=== PATIENT | female | born 1960 | race Caucasian/White ===

== ENCOUNTER → 2018-08-15 08:16 | Outpatient (CLI) | payer OTHER, SELFPAY ==
--- NOTE | 2018-08-15 08:19 | BI_ITS ---
MAMMOGRAPHY - BILATERAL SCREENING REASON FOR EXAM: Female, 58 years old. Routine annual screening examination. PERTINENT HISTORY: NO FAM HX - NO PREV SURG'S TECHNIQUE: Digital bilateral breast jt (3D mammographic acquisition) in the CC and MLO projections. 2-D mediolateral oblique (MLO) and craniocaudad (CC) views of both breasts were obtained. CAD: Full Field Digital Mammography with Computer Added Detection was performed. COMPARISON: None. FINDINGS: Breast Composition: There are scattered areas of fibroglandular density. There are no dominant masses or suspicious calcifications. No other significant abnormalities are identified. BI/SCREENING MAMM (CAD), BILAT IMPRESSION: Stable bilateral screening mammogram. Yearly follow-up mammogram recommended. (A) ASSESSMENT CATEGORY: BIRADS Category 2: Benign. A letter regarding these results will be sent to the patient by the facility within 30 days. Approximately 10% of breast cancers are not detected by mammography. A normal mammogram should not delay biopsy of a clinically suspicious abnormality. [id number] Electronically Signed: Roseann Dumont MD at 15:57 EDT Tel , Service support ,
== END ==
DX: Z12.31 Encounter for screening mammogram for malignant neoplasm of breast (principal)
CPT/HCPCS: 77063; 77067

== ENCOUNTER → 2019-12-31 11:02 | Outpatient (CLI) | payer OTHER, MEDICAID, SELFPAY ==
[2019-12-31 10:58] VITALS: BMI 32.3
--- NOTE | 2019-12-31 11:03 | RAD_ITS ---
STUDY: X-RAY - LEFT KNEE REASON FOR EXAM: Knee keeps popping. TECHNIQUE: 4 view(s) of the knee. COMPARISON: Radiographs 02/28/2017. FINDINGS: Normal visualized distal femur. Normal visualized proximal tibia and fibula. Normal proximal tibiofibular articulation. Normal medial femorotibial compartment. Normal lateral femorotibial compartment. Normal patellofemoral articulation. The soft tissue structures are unremarkable. RAD/Knee 4 or More Views IMPRESSION: Normal x-ray examination of the left knee. Electronically Signed: Storm Montoya MD at 15:01 EST Tel , Service support ,
== END ==
PROVIDERS: Referring Provider Orthopaedic Surgery; Visit Provider Orthopaedic Surgery
DX: M25.562 Pain in left knee (principal)
CPT/HCPCS: 73564

== ENCOUNTER → 2020-09-10 08:10 | Outpatient (CLI) | payer OTHER, MEDICAID, SELFPAY ==
[2020-09-10 09:22] LABS: Absolute Lymphocyte Count 1.81 X10^3/uL (0.83-4.51); Absolute Neutrophil Count 4.8 X10^3/uL (2.0-7.7); Basophil# 0.03 X10^3/uL; Basophil% 0.4 % (0-1); Eosinophil# 0.13 X10^3/uL; Eosinophils% 1.8 % (0-5); Hemoglobin 11.4 g/dL (12.0-15.0); Lymphocyte # 1.81 X10^3/ul (4.0); Lymphocyte % 25.1 % (19-41); Mean Corpuscular Hgb 29.2 pg (27.0-32.0); Mean Corpuscular Volume 97.2 fL (81-99); Mean Platelet Vol. 8.4 fl (6.2-12.0); Monocyte# 0.38 X10^3/uL; Monocyte% 5.3 % (0-10); NRBC Flagged by Analyzer 0 % (0-5); Neutrophil # 4.83 X10^3/uL (2.7-7.7); Platelet Count 259 K/mm3 (150-450); RBC Distribution Width CV 15.7 % (11.6-14.6); RBC Distribution Width SD 55.9 fl (35.1-43.9); Red Blood Count 3.91 M/mm3 (4.2-5.4); White Blood Count 7.2 K/mm3 (4.4-11.0)
[2020-09-10 10:01] LABS: ALB/GLOB Ratio 0.9 RATIO (0.9-2.4); AST(SGOT) 12 U/L (15-37); Alanine Aminotransfer ALT/SGPT 23 U/L (13-56); Albumin, Serum 3.2 g/dL (3.2-5.0); Alkaline Phosphatase 104 U/L (45-117); Anion Gap 9 (5-15); BUN 15 mg/dL (7-18); BUN/Creat Ratio 16.6 RATIO (10-20); Calcium,Total 8.7 mg/dL (8.5-10.1); Chloride 101 mmol/L (98-107); Cholesterol 206 mg/dL (200); EST Glomerular Filtration Rate 67 mL/min (>60); Est Glom Filt Rate - Afr Amer 81 mL/min (>60); Globulin 3.7 g/dL (2.2-4.2); Glucose 106 mg/dL (74-106); High Density Lipoprotein 49 mg/dL; Potassium 4.3 mmol/L (3.5-5.1); Protein, Total 6.9 g/dL (6.4-8.2); Sodium Level 137 mmol/L (136-145); T4 Free Direct 0.91 ng/dL (0.76-1.46); Thyroid Stim Hormone (TSH) 4.22 uIU/mL (0.358-3.74); Triglycerides 251 mg/dL; Uric Acid 5.4 mg/dL (2.6-6.0); Very Low Density Lipoprotein 50 mg/dL (5-40)
[2020-09-10 10:42] LABS: Vitamin D,25 Hydroxy 88.1 ng/mL
== END ==
PROVIDERS: Nurse Practitioner Family
DX: I10 Essential (primary) hypertension (principal); E78.2 Mixed hyperlipidemia; E03.9 Hypothyroidism, unspecified; E55.9 Vitamin D deficiency, unspecified; M10.9 Gout, unspecified
CPT/HCPCS: 36415; 80053; 80061; 82306; 84439; 84443; 84550; 85025

== ENCOUNTER → 2021-02-21 08:51 | Outpatient (CLI) | payer OTHER, MEDICAID, SELFPAY ==
[2021-02-21 09:33] LABS: Absolute Lymphocyte Count 1.72 X10^3/uL (0.83-4.51); Absolute Neutrophil Count 5.2 X10^3/uL (2.0-7.7); Basophil# 0.05 X10^3/uL; Basophil% 0.7 % (0-1); Eosinophil# 0.12 X10^3/uL; Eosinophils% 1.6 % (0-5); Hematocrit 41.6 % (37-47); Hemoglobin 12.2 g/dL (12.0-15.0); Lymphocyte # 1.72 X10^3/ul (4.0); Lymphocyte % 22.6 % (19-41); Mean Corp Hgb Conc 29.3 g/dL (32-36); Mean Corpuscular Volume 95.4 fL (81-99); Mean Platelet Vol. 8.6 fl (6.2-12.0); Monocyte# 0.48 X10^3/uL; Monocyte% 6.3 % (0-10); NRBC Flagged by Analyzer 0 % (0-5); Neutrophil # 5.21 X10^3/uL (2.7-7.7); Neutrophil % 68.4 % (47-70); Platelet Count 293 K/mm3 (150-450); RBC Distribution Width CV 15.6 % (11.6-14.6); Red Blood Count 4.36 M/mm3 (4.2-5.4); White Blood Count 7.6 K/mm3 (4.4-11.0)
[2021-02-21 10:05] LABS: Vitamin B12 309 pg/mL (211-911)
[2021-02-21 10:30] LABS: ALB/GLOB Ratio 0.9 RATIO (0.9-2.4); AST(SGOT) 11 U/L (15-37); Alanine Aminotransfer ALT/SGPT 22 U/L (13-56); Albumin, Serum 3.6 g/dL (3.2-5.0); Alkaline Phosphatase 92 U/L (45-117); Anion Gap 7 (5-15); BUN 14 mg/dL (7-18); BUN/Creat Ratio 16.3 RATIO (10-20); Calcium,Total 9.1 mg/dL (8.5-10.1); Chloride 103 mmol/L (98-107); Creatinine, Serum 0.86 mg/dL (0.55-1.02); EST Glomerular Filtration Rate 71 mL/min (>60); Est Glom Filt Rate - Afr Amer 86 mL/min (>60); Globulin 3.8 g/dL (2.2-4.2); Glucose 105 mg/dL (74-106); Iron 62 ug/dL (50-170); Iron Binding Capacity,Total 338 ug/dL (250-450); PERCENT IRON SATURATION 18.3 % (15.0-55.0); Potassium 3.9 mmol/L (3.5-5.1); Protein, Total 7.4 g/dL (6.4-8.2); Sodium Level 136 mmol/L (136-145); Thyroid Stim Hormone (TSH) 4.14 uIU/mL (0.358-3.74)
== END ==
DX: D64.9 Anemia, unspecified (principal)
CPT/HCPCS: 36415; 80053; 82607; 82746; 83540; 83550; 84443; 85025

== ENCOUNTER → 2021-02-22 | Outpatient (CLI) | payer OTHER, MEDICAID, SELFPAY ==
[2021-02-22 11:53] LABS: Bacteria 0 SEEN /hpf (None Seen); Mucous, Urine 0 SEEN /hpf (<or=2+); Red Blood Cells-Urine 0 SEEN /hpf (0-5); Squamous Epithelial Cells - UA 0 SEEN /hpf (5-10); White Blood Cells 0 SEEN /hpf (0-5)
[2021-02-22 11:58] LABS: Color, Urine Yellow (Yellow); Glucose, Dipstick Normal (Normal); Ketone-Dipstick Negative (Negative); Leukocyte Esterase-Dipstick Negative /ul (Negative); Nitrite-Dipstick Negative (Negative); Occult Blood-Urine 10 /ul (Negative); Protein-Dipstick 15 mg/dl (Negative); Urine Bilirubin Dipstick Negative (Negative); Urine Clarity Cloudy (Clear); Urine Urobilinogen Normal (Normal)
[2021-02-22 12:03] LABS: Amorphous Sediment 3+
== END | disposition home or self-care (01) ==
DX: R31.29 Other microscopic hematuria (principal); E78.2 Mixed hyperlipidemia
CPT/HCPCS: 81001; 82274

== ENCOUNTER → 2021-04-28 11:29 | Outpatient (CLI) | payer MEDICAID, SELFPAY ==
[2021-04-28 13:00] LABS: Thyroid Stim Hormone (TSH) 3.84 uIU/mL (0.358-3.74)
== END ==
PROVIDERS: Visit Provider Nurse Practitioner Adult Health
DX: E03.9 Hypothyroidism, unspecified (principal)
CPT/HCPCS: 36415; 84443

== ENCOUNTER 2021-06-08 07:16 | Day surgery (SDC) | payer MEDICAID, SELFPAY ==
[2021-05-11 09:31] VITALS: BMI 35.9
[2021-06-08] VITALS (12 sets, daily range): BP systolic 89–138; BP diastolic 55–75; PULSE 56–66; RESP 12–18; TEMP 36.2–36.4; O2SAT 93–100; BMI 51.6
[2021-06-08] MEDS: Lactated Ringers 1,000 ML 100 ML IV (07:57)
--- NOTE | 2021-06-08 07:57 | PCM.HP.BLA ---
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 Required: No Is patient in pain?: No Allergies Iodinated Contrast Media [DYEE] Allergy (Verified 05/11/21 09:41) Rash Sulfa (Sulfonamide Antibiotics) Allergy (Verified 05/11/21 09:41) Rash sertraline HCl [From Zoloft] Adverse Reaction (Verified 05/11/21 09:41) Other Medications candesartan 16 mg PO DAILY 09/09/15 [History Confirmed 05/11/21] citalopram 20 mg PO DAILY 09/09/15 [History Confirmed 05/11/21] cholecalciferol (vitamin D3) 50 mcg (2,000 unit) capsule 2,000 unit PO ONCE 12/18/17 [History Confirmed 05/11/21] allopurinol 100 mg tablet 100 mg PO DAILY 12/31/19 [History Confirmed 05/11/21] levothyroxine 50 mcg tablet 100 mcg PO DAILY tab 05/11/21 [History Confirmed 05/11/21] meloxicam 7.5 mg tablet 7.5 mg PO BID PRN tab 05/11/21 [History Confirmed 05/11/21] PFSH Medical History Difficulty balancing Fatigue Hemorrhoids HTN (hypertension), benign Knee pain Limb weakness Thyroid disease Family History (Updated 05/11/21 @ 09:42 by Elisa Malone) Brother Diabetes Mother Hypertension Kidney disease Daughter Thyroid disorder Father Cancer eye cancer Social History Smoking Status: Current some day smoker alcohol intake: current alcohol intake frequency: holidays/special occasions only Alcohol type: beer and wine HPI HPI HPI: NOEL BISHOP, is a 60 F who presents to the office today for colonoscopy due to positive fecal occult blood test. Patient last colonoscopy was in [address] Worley only showed some diverticulosis and small internal hemorrhoids recommend follow-up colonoscopy in 10 years. Patient has been having some lower left groin pain which she states did get better with bladder diet patient states now she has the suprapubic stinging that comes and goes. Patient cannot relate it to anything specific. Points to about her pubic bone. During this work-up patient did get the fecal occult test which was positive. Patient denies any family history of colon cancer. Patient states she has bowel movements daily denies any blood. ROS General General: Yes fatigue; No weight change, appetite, colon cancer, breast cancer or weakness HEENT HEENT: No difficulty swallowing, eye injury, eye surgery, swollen glands or hoarseness Endo Endocrine: Yes thyroid disease; No diabetes mellitus, thyroid cancer, Hair loss, heat intolerance or cold intolerance Skin Skin: No rash or changing moles Breast Breast: No left breast lump, right breast lump, nipple discharge, breast pain, abnormal mammogram, abnormal US or breast enlargement Musc Musculoskeletal: Yes arthritis and gout; No back problems, rheumatoid arthritis or joint pain Cardio Cardiovascular: Yes high blood pressure; No murmur, pacemaker, heart disease, atrial fibrillation, heart attack, heart stent, palpitations, shortness of breat with exertion or chest pain Psych Psychiatric: Yes depression and anxiety; No hearing voices Resp Respiratory: Yes shortness of breath, Yes sleep apnea, No cough, No COPD, No asthma, No emphysema and No wheezing Gastro Gastrointestinal: No abdominal pain, No nausea or vomiting, Yes diarrhea, No constipation, No blood in stool, No acid reflux, Yes hemorrhoids, No ulcers, No gallbladder problem and No black,tarry stools Jorge Hematologic: No blood thinners, No blood disorders, No bleeding, No anemia and No blood clots Neuro Neurologic: No system reviewed and no additional complaints, except as documented, No as per HPI, No abnormal gait, No abnormal hearing, No abnormal movements, No abnormal speech, No behavioral changes, No burning sensations, No confusion, No convulsions, No disequilibrium, No dizziness, No localized weakness, No frequent falls, No headache(s), No lack of coordination, No loss of vision, No memory loss, No numbness, No other visual disturbances, No radicular pain, No restless legs, No sensory deficit, No syncope, No tingling, No tremor(s), No weakness and No other Exam Const General: cooperative, healthy appearing, comfortable and no acute distress Neck Neck: normal visual inspection Resp Effort & Inspection: normal respiratory effort Cardio Rate: regular rate GI Inspection: non-distended Palpation: soft, no guarding and nontender Skin General: no rashes or lesions noted Neuro General: patient oriented x3 Psych Affect: normal affect COVID (Procedure Consent) Procedure Criteria Procedure Criteria: Yes Elective The surgeon/proceduralist and patient have discussed in detail the risk of exposure to and/or potential harm posed by the COVID-19 virus with having a surgery/procedure at this time versus the risk of delaying the surgery/procedure. It is not possible to know either the risk of delaying the surgery or procedure or chance of getting an infection with perfect accuracy, but a joint decision was made between the patient and the surgeon/proceduralist to proceed at this time with the scheduled surgery/procedure as indicated on the consent form. Assessment and Plan Assessment and Plan (1) Fecal occult blood test positive: Status: Acute Plan - Dr. Amee Post MD: I have discussed the above with the patient. I have offered the patient colonoscopy for evaluation. I have explained the risks/benefits of the procedure and described the procedure. I have discussed the risks with the patient, including but not limited to: infection, bleeding, perforation of the GI tract requiring emergency surgery, inability to complete the procedure, injury to any internal organs, complications of anesthesia, etc. - the patient understands and agrees to proceed. I have answered all the patient's questions to the patient's satisfaction and the patient has no further questions. The patient has been given instructions for the colon cleansing preparation. 1 day clears MiraLAX Dulcolax split prep. Amee Post M.D. Pager: [phone] [facility] [address] [place] [address], [address] [place] [address] Office: [phone] Plan Details Other Orders: Orders: Colonoscopy Today Coding Level of Care Code Off vis,new,level 3 Diagnoses Fecal occult blood test positive R19.5 05/12/21 1353<Electronically signed by Amee Post MD>Date Amee Post MD
--- NOTE | 2021-06-08 08:45 | COLBX_PTH ---
PATIENT: NOEL BISHOP LOC: EN U#:[id number] AGE/SX: 60/F ROOM: RE06/08/[address]: Dr. Amee Post MD : 1960 BED: DIS: 06/08/2021 SPEC #: [id number] RECD: 06/08/21 10:53 STATUS: VERENICE REQ #: [id number] CORIE: 06/08/21 08:[address]: Amee Post DEPT: SURGICAL PATHOLOGY RECD BY: Vicki Esteban ENTERED: 06/08/21 11:27 SP TYPE: COLON BX OTHR DR: Goldie Henley, MEDICAL IMAGING SPECIALIST-C [facility] Tissues: A - Ascending colon B - Rectum, NOS Procedures: Surgery Specimen Level IV HEADER OPERATION: Colonoscopy (MAC) PRE-OP DIAGNOSIS: Fecal occult blood test positive TISSUE SUBMITTED: A ? Ascending polyp biopsy, B ? Rectal polyp biopsy MICROSCOPIC DIAGNOSIS A. Ascending colon polyp, biopsy: Tubular adenoma. B. Rectal polyp, biopsy: Hyperplastic polyp. ALINA:cat 06/09/2021 MICROSCOPIC DESCRIPTION Slides are reviewed. GROSS DESCRIPTION A - Received in fixative is one container labeled with the patient's name and designated ascending polyp biopsy. The specimen consists of one irregular fragment of light newton soft tissue that measures 0.4 x 0.3 x 0.1 cm. The specimen is totally submitted in one cassette. B - Received in fixative is one container labeled with the patient's name and designated rectal polyp biopsy. The specimen consists of one irregular fragment of light newton soft tissue that measures 0.2 x 0.2 x 0.1 cm. The specimen is totally submitted in one cassette. / ALINA:cat 06/08/21 TC:1 [facility]: [id number] x2
--- NOTE | 2021-06-08 09:24 | OP.CCLET_ITS ---
06/08/2021 Genia Bedoya [facility] Re : Colonoscopy procedure for Tamara Tierney [facility] This procedure was performed on Tuesday, June 08, 2021. My impressions and recommendations are as follows: Impressions : - Two less than 5 mm polyps in the rectum and in the ascending colon, removed with a cold biopsy forceps. Resected and retrieved. - Diverticulosis in the sigmoid colon. Recommendations : - Discharge patient to home. - High fiber diet. - Continue present medications. - Await pathology results. - Repeat colonoscopy in 5 years for surveillance based on pathology results. My findings are described in the full procedure note, which is enclosed. If I can be of further assistance, please feel free to contact me at Doctor phone number(s): , Work: . Sincerely, MD Amee Walker MD 06/08/2021 9:23:33 AM This report has been signed electronically.
--- NOTE | 2021-06-08 09:24 | OP.COLON_ITS ---
Patient Name: Tamara Benz Procedure Date: 06/08/2021 8:54 AM Date of : 1960 Age: 60 Procedure: Colonoscopy Indications: +FOBT Providers: Amee Post MD Referring MD: Amee Post MD Medicines: Monitored Anesthesia Care Patient Profile: This is a 60 year old female. Last Colonoscopy: 2011. Complications: No immediate complications. Procedure: Pre-Anesthesia Assessment: - Prior to the procedure, a History and Physical was performed, and patient medications and allergies were reviewed. The patient's tolerance of previous anesthesia was also reviewed. The risks and benefits of the procedure and the sedation options and risks were discussed with the patient. All questions were answered, and informed consent was obtained. Prior Anticoagulants: The patient has taken no previous anticoagulant or antiplatelet agents. ASA Grade Assessment: Per anesthesia. After reviewing the risks and benefits, the patient was deemed in satisfactory condition to undergo the procedure. After I obtained informed consent, the scope was passed under direct vision. Throughout the procedure, the patient's blood pressure, pulse, and oxygen saturations were monitored continuously. The colonoscope was introduced through the anus and advanced to the cecum, identified by the appendiceal orifice, ileocecal valve and palpation. The colonoscopy was performed without difficulty. The patient tolerated the procedure well. The quality of the bowel preparation was good. Scope In: 8:59:41 AM Scope Withdrawal Time 0 hours 12 minutes 31 seconds Scope Out: 9:17:46 AM Total Procedure Duration Time 0 hours 18 minutes 5 seconds Findings: The perianal and digital rectal examinations were normal. Two sessile polyps were found in the rectum and ascending colon. The polyps were less than 5 mm in size. These polyps were removed with a cold biopsy forceps. Resection and retrieval were complete. Multiple small-mouthed diverticula were found in the sigmoid colon. Impression: - Two less than 5 mm polyps in the rectum and in the ascending colon, removed with a cold biopsy forceps. Resected and retrieved. - Diverticulosis in the sigmoid colon. Recommendation: - Discharge patient to home. - High fiber diet. - Continue present medications. - Await pathology results. - Repeat colonoscopy in 5 years for surveillance based on pathology results. Procedure Code(s): --- Professional --- 26625, Colonoscopy, flexible; with biopsy, single or multiple Diagnosis Code(s): --- Professional --- K62.1, Rectal polyp D12.2, Benign neoplasm of ascending colon K57.30, Diverticulosis of large intestine without perforation or abscess without bleeding CPT copyright 2017 [employer]. All rights reserved. The codes documented in this report are preliminary and upon electrostatic powder coating technician review may be revised to meet current compliance requirements. MD Amee Walker MD 06/08/2021 9:23:33 AM This report has been signed electronically. Number of Addenda: 0 Note Initiated On: 06/08/2021 8:54 AM
== END 2021-06-08 10:35 | disposition home or self-care (01) ==
LOC: EN 07:17 → AC 07:17
PROVIDERS: Referring Provider Surgery; Visit Provider Surgery
PROC: 0DJD8ZZ Inspection of Lower Intestinal Tract, Via Natural or Artificial Opening Endoscopic (ICD-10-PCS; CPT 45378; principal; 2021-06-08 08:40)
DX: D12.2 Benign neoplasm of ascending colon (principal); K62.1 Rectal polyp; K57.30 Diverticulosis of large intestine without perforation or abscess without bleeding; I10 Essential (primary) hypertension; E07.9 Disorder of thyroid, unspecified; M19.90 Unspecified osteoarthritis, unspecified site; F17.210 Nicotine dependence, cigarettes, uncomplicated; Z20.822 Contact with and (suspected) exposure to COVID-19; Z79.899 Other long term (current) drug therapy
CPT/HCPCS: 45380; 87426; 88305; C9803; J7120; J2405

== ENCOUNTER 2021-11-16 12:15 | Outpatient (CLI) | payer MEDICAID, SELFPAY ==
[2021-11-16 12:44] LABS: Absolute Lymphocyte Count 1.13 X10^3/uL (0.83-4.51); Absolute Neutrophil Count 5.9 X10^3/uL (2.0-7.7); Basophil# 0.03 X10^3/uL; Basophil% 0.4 % (0-1); Eosinophil# 0.11 X10^3/uL; Eosinophils% 1.4 % (0-5); Hematocrit 42.6 % (37-47); Hemoglobin 13.5 g/dL (12.0-15.0); Lymphocyte # 1.13 X10^3/ul (0.83-4.51); Lymphocyte % 14.7 % (19-41); Mean Corp Hgb Conc 31.7 g/dL (32-36); Mean Corpuscular Hgb 29.8 pg (27.0-32.0); Mean Platelet Vol. 8.5 fl (6.2-12.0); Monocyte# 0.44 X10^3/uL; Monocyte% 5.7 % (0-10); NRBC Flagged by Analyzer 0 % (0-5); Neutrophil # 5.94 X10^3/uL (2.7-7.7); Neutrophil % 77.5 % (47-70); Platelet Count 300 K/mm3 (150-450); RBC Distribution Width CV 15.3 % (11.6-14.6); RBC Distribution Width SD 52.7 fl (35.1-43.9); Red Blood Count 4.53 M/mm3 (4.2-5.4); White Blood Count 7.7 K/mm3 (4.4-11.0)
[2021-11-16 13:16] LABS: Vitamin D,25 Hydroxy 99.1 ng/mL
[2021-11-16 13:24] LABS: ALB/GLOB Ratio 0.9 RATIO (0.9-2.4); AST(SGOT) 32 U/L (15-37); Alanine Aminotransfer ALT/SGPT 37 U/L (13-56); Albumin, Serum 3.6 g/dL (3.2-5.0); Alkaline Phosphatase 99 U/L (45-117); Anion Gap 9 (5-15); BUN 18 mg/dL (7-18); BUN/Creat Ratio 20.3 RATIO (10-20); Calcium,Total 9.2 mg/dL (8.5-10.1); Chloride 105 mmol/L (98-107); Creatinine, Serum 0.89 mg/dL (0.55-1.02); EST Glomerular Filtration Rate 68 mL/min (>60); Est Glom Filt Rate - Afr Amer 83 mL/min (>60); Ferritin 146 ng/mL (8-252); Globulin 4.1 g/dL (2.2-4.2); Glucose 109 mg/dL (74-106); Iron 46 ug/dL (50-170); Potassium 3.4 mmol/L (3.5-5.1); Protein, Total 7.7 g/dL (6.4-8.2); Sodium Level 137 mmol/L (136-145); T4 Free Direct 0.97 ng/dL (0.76-1.46)
== END 2021-11-16 23:59 | disposition short-term general hospital (02) ==
LOC: LAB 12:16
DX: E03.9 Hypothyroidism, unspecified (principal); I10 Essential (primary) hypertension; E55.9 Vitamin D deficiency, unspecified; E61.1 Iron deficiency
CPT/HCPCS: 36415; 80053; 82306; 82728; 83540; 84439; 84443; 85025

== ENCOUNTER 2022-01-27 09:20 | Outpatient (CLI) | payer MEDICAID, SELFPAY ==
[2022-01-27 11:02] LABS: Potassium 3.9 mmol/L (3.5-5.1)
[2022-01-27 11:03] LABS: Hemoglobin A1c 6.1 % (3.8-5.6)
== END 2022-01-27 23:59 | disposition home or self-care (01) ==
LOC: LAB 09:22
DX: E87.6 Hypokalemia (principal); R73.09 Other abnormal glucose
CPT/HCPCS: 36415; 83036; 84132

== ENCOUNTER 2022-01-31 08:52 | Outpatient (CLI) | payer MEDICAID, SELFPAY ==
[2022-01-31 10:27] LABS: Vitamin D,25 Hydroxy 92.6 ng/mL
[2022-01-31 10:35] LABS: Iron 51 ug/dL (50-170); Thyroid Stim Hormone (TSH) 0.89 uIU/mL (0.358-3.74)
== END 2022-01-31 23:59 | disposition home or self-care (01) ==
LOC: LAB 08:53
PROVIDERS: Referring Provider Nurse Practitioner Adult Health; Visit Provider Nurse Practitioner Adult Health
DX: E03.9 Hypothyroidism, unspecified (principal); E61.1 Iron deficiency; E55.9 Vitamin D deficiency, unspecified
CPT/HCPCS: 36415; 82306; 83540; 84443

== ENCOUNTER → 2022-04-14 | Outpatient (CLI) | payer MEDICAID, SELFPAY ==
--- NOTE | 2022-04-14 16:22 | SP.MBSS_ITS ---
Modified Barium Swallow - Patient Information Study Date: 04/14/22 Study Time: 13:00 Direct Billable Minutes: 85 Total Minutes procedure & reportin Diagnosis: Dysphagia, unspecified (R13.10) Referring Physician: Lul Albert Reason for Referral: Objectively assess swallow function, risk for aspiration, and determine recommendations for least restrictive diet textures and compensatory strategies to improve safety of swallow. Medical History: The patient is a 61-year-old female with PMH including thyroid disease, fatigue, and HTN (SEE EMR for full PMH). She reports coughing spells ~2X/month on liquids. Pt's daughter present for the study, and she reported that her mother occasionally coughs with solids, as well. She at times feels she has something caught in the base of her throat. She also reports frequent post nasal drip and coughing when in the AM when waking. Current Diet Ordered: Regular textures / Thin liquids Dentition: Natural Teeth, Partials - lower partials in place for study Mental Status: WNL Respiratory Status: Oxygenating on Room Air - Penetration-Aspiration Scale Penetration-Aspiration Scale: OBJECTIVE ASSESSMENT OF SWALLOW FUNCTION (QUANTITATIVE ? PER TRIAL): PENETRATION / ASPIRATION SCALE (JAMES): 1 = does not enter airway 2 = enters airway/above vocal folds/ejected 3 = enters airway/above vocal folds/not ejected 4 = enters airway/contacts vocal folds/ejected 5 = enters airway/contacts vocal folds/not ejected 6 = enters airway/below vocal folds/ejected 7 = enters airway/below vocal folds/not ejected despite effort 8 = enters airway/below vocal folds/no effort VIDEOFLOROSCOPIC SCALE SCORE (JAMES): Grade I = aspiration of material that has penetrated into the laryngeal vestibule, intact cough reflex Grade II = aspiration < 10 % of the bolus, intact cough reflex Grade III = aspiration of < 10 % of the bolus, reduced cough reflex or aspiration of > 10 % of the bolus, intact cough reflex Grade IV = aspiration of > 10 % of the bolus, reduced cough reflex - Penetration-Aspiration Scale Score Thin Liquid via teaspoon Result: 1= does not enter airway Thin Liquid via teaspoon Trial 2 Result: 1= does not enter airway Thin Liquid via small single sip from cup Result: 2= enter airway/above vocal folds/ejected Thin Liquid via sequential sips from cup Result: 2= enter airway/above vocal folds/ejected [place] Thick Liquid via small single sip from cup Result: 1= does not enter airway Honey Thick Liquid via small single sip from cup Result: 1= does not enter airway Pudding via teaspoon with esophageal screen Result: 1= does not enter airway 1/2 Cookie Result: 1= does not enter airway Thin Liquid via single sip from straw Result: 1= does not enter airway Thin Liquid via sequential sips from straw Result: 2= enter airway/above vocal folds/ejected Thin Liquid via small single sip from cup Trial 2 Result: 1= does not enter airway - Oral Phase Labial Seal: No Labial Escape Tongue Control During Bolus Hold: Posterior escape of greater than half of bolus Bolus Preparation/Mastication: Timely and efficient chewing and mashing Bolus Transport/Lingual Motion: Brisk tongue motion Oral Residue: Majority of bolus remaining - Piecemeal deglutition of cookie - effectively cleared with independent use of multiple swallows - Pharyngeal Phase Initiation of Pharyngeal Swallow: Bolus head in pyriforms - sequential sips Soft Palate Elevation: Trace column of contrast/air between soft palate and pharyngeal wall Laryngeal Elevation: Partial superior movement thyroid cart/partial apprx aryt- epig petiole Anterior Hyoid Excursion: Partial anterior movement Epiglottic Movement: Complete inversion Laryngeal Vestibule Closure at Height of Swallow: Incomplete; narrow column of air/contrast in laryngeal vestibule Pharyngeal Stripping Wave: Present - complete Pharyngoesophageal Segment Opening: Complete distension and complete duration; no obstruction of flow Tongue Base Retraction: Narrow column of contrast between tongue base & post. pharyngeal wall Pharyngeal Residue: Trace residue within or on pharyngeal structures - Esophageal Phase Esophageal Clearance: Esophageal retention w/ retrograde flow below pharyngoesophageal seg. - Treatment Strategies Effects of treatment strategies attemped:: Decreased bolus rate = effective. - Diagnosis/Impression Diagnosis: Mild oropharyngeal phase dysphagia (R13.12) Impression: The oral phase of the swallow is marked by decreased bolus control with premature posterior loss of bolus head of sequential sips of thin liquids to the pyriform sinuses prior to swallow onset. She had timely mastication and brisk tongue motion for A-P transport of bolus. Piecemeal deglutition of cookie. The pharyngeal phase is marked by mildly decreased tongue base retraction, laryngeal elevation, and anterior hyoid excursion. She presented with laryngeal penetration above the vocal folds with full ejection on one single sip of thin liquids and both trials of sequential sips of thin liquids. No aspiration observed during the study. Trace pharyngeal residue was cleared with second swallows initiated independently by the patient. The esophageal phase is marked by minimal retention and slow emptying of pudding trial (~25 seconds) with retrograde flow to mid esophagus. - Recommendations Diet: Regular Textures, Thin Liquids Compensatory Strategies: Small Bites, Small Sips, Slow Rate, Sitting upright, Remain sitting upright for 30 minutes after PO intake, Minimize/decrease distractions Recommend Repeat Modified Barium Swallow: No Need for Skilled Speech Therapy Services: Yes Comment: Will recommend the patient for outpatient dysphagia therapy to address mild deficits in oropharyngeal swallow function. Would consider the patient for oropharyngeal strengthening to improve laryngeal elevation, hyoid excursion, and tongue base retraction (Ana, effortful, CTAR, and Aparna). The patient would benefit from thorough education regarding reflux management/precautions and recommended compensatory strategies to decrease risk for aspiration. Recommended Referrals: GI Consult - Esophagram planned for 04/17/2022. ALLIED HEALTH TEACHER concerns for reflux. SEE esophageal phase impressions above. Education Completed: 1. Described result of evaluation., 7. Pt requires further education on strategies & risks. - Status Active ST Patient: Active - Contact Information [facility] Speech Therapy:: Rosie Mullins M.A. [facility]-[employer]IED HEALTH TEACHER Speech-Language Pathologist [facility] [address] [place] [address] [email or web address] [phone] 04/14/22 16:27
== END | disposition home or self-care (01) ==
LOC: RAD 12:13
PROVIDERS: Referring Provider Otolaryngology; Visit Provider Otolaryngology
DX: R13.10 Dysphagia, unspecified (principal)
CPT/HCPCS: 74230; 92611

== ENCOUNTER → 2022-04-17 | Outpatient (CLI) | payer MEDICAID, SELFPAY ==
--- NOTE | 2022-04-17 08:41 | RAD_ITS ---
STUDY: X-RAY - ESOPHAGUS (BARIUM SWALLOW) WITH FLUOROSCOPY REASON FOR EXAM: Female, 61 years old. DYSPHAGIA TECHNIQUE: 23 view(s) of the esophagus were obtained following swallowing of barium. FLUOROSCOPY TIME (if supplied): (27 seconds) minutes/seconds COMPARISON: None. FINDINGS: There is no demonstrated esophageal foreign body. There is no demonstrated stricture or mucosal abnormality. Normal gastroesophageal junction, without a demonstrated hiatal hernia. The patient ingested a 12 mm tablet of barium without any difficulty. Normal visualized aortic arch and descending thoracic aorta. Normal visualized pulmonary parenchyma. Normal visualized osseous structures of the thorax. RAD/Esophagus Dual Contrast IMPRESSION: Normal plain film x-ray examination (barium swallow) of the esophagus. Electronically Signed: Tristan Linares MD at 12:58 EDT ,
== END | disposition home or self-care (01) ==
LOC: RAD 08:39
PROVIDERS: Referring Provider Otolaryngology; Visit Provider Otolaryngology
DX: R13.10 Dysphagia, unspecified (principal)
CPT/HCPCS: 74221

== ENCOUNTER 2022-05-09 20:25 | Emergency (ER) | payer MEDICAID, SELFPAY ==
[2022-05-09 20:27] VITALS: BP 157/66; PULSE 86; RESP 14; TEMP 36.6; O2SAT 99; BMI 35.9
--- NOTE | 2022-05-09 21:16 | EX.ED.DYSGE1 ---
HPI History of Present Illness Chief Complaint: Abd Pain Informant: patient Narrative Narrative: Repeat is 1 week history abdominal bloating diarrhea with constipation. States feeling hot and cold at times. Denies dysuria. Decreased urine output. Nausea a week ago resolved. She tolerated oral intake however is not drinking as much. C-sections in the past. She reports concerns for diverticulitis however denies any pain in her abdomen. She states this feels fatigued. No chest pains. No cough. Prior similar symptoms: Yes PFSH PFSH Medical History Alcohol use Anemia Anxiety Arthritis CPAP (continuous positive airway pressure) dependence Difficulty balancing Difficulty swallowing Fatigue Gout Hemorrhoids History of diverticulitis History of stress test HTN (hypertension), benign Hypertension Knee pain Limb weakness Open wound Shortness of breath on exertion Smoker Thyroid disease Wears partial dentures Home Medications candesartan 16 mg tablet 32 mg PO DAILY 09/09/15 [History Last Taken Unknown] citalopram 20 mg tablet 30 mg PO DAILY 09/09/15 [History Last Taken Unknown] cholecalciferol (vitamin D3) 50 mcg (2,000 unit) capsule 2,000 unit PO DAILY 12/18/17 [History Last Taken Unknown] allopurinol 100 mg tablet 100 mg PO DAILY 12/31/19 [History Last Taken Unknown] levothyroxine 50 mcg tablet 125 mcg PO DAILY 05/11/21 [History Last Taken Unknown] meloxicam 7.5 mg tablet 7.5 mg PO BID PRN Pain 05/11/21 [History Last Taken Unknown] Allergy/AdvReac Type Severity Reaction Status Date / Time Iodinated Contrast Media Allergy Rash Verified 05/09/22 20:26 [DYEE] Sulfa (Sulfonamide Allergy Rash Verified 05/09/22 20:26 Antibiotics) sertraline HCl [From Zoloft] AdvReac Other Verified 05/09/22 20:26 Family History Brother Diabetes Mother Hypertension Kidney disease Daughter Thyroid disorder Father Cancer eye cancer Surgical History History of History of carpal tunnel surgery of left wrist Hx laparoscopic cholecystectomy Hx of colonoscopy Hx of release of tendon Social History Smoking Status: Current some day smoker tobacco type: cigarettes alcohol intake: current alcohol intake frequency: holidays/special occasions only Alcohol type: beer and wine ROS ROS ED Constitutional Constitutional ED: Reports chills and fever(s); Denies sweats Eyes Eyes: Denies change in vision ENT ENT ED: Denies dysphagia or sore throat Cardiovascular Cardiovascular: Denies chest pain, leg edema, palpitations or racing heartbeat Respiratory/Chest Respiratory/Chest: Denies cough, dyspnea or dyspnea on exertion Gastrointestinal Gastrointestinal: Reports diarrhea; Denies abdominal pain, nausea or vomiting Genitourinary Genitourinary ED: Denies dysuria, hematuria or urinary frequency Musculoskeletal Musculoskeletal: Denies back pain, extremity pain or neck pain Integumentary Denies rash or wounds Neurologic Neurologic: Denies headache(s), paresthesias or weakness EXAM Physical Exam Const Vital Signs: 05/09/22 20:27 05/09/22 23:13 Temperature 97.8 F Temperature Source Temporal Pulse Rate 86 71 Respiratory Rate 14 15 Blood Pressure 157/66 H 138/65 H Blood Pressure Mean 96 Pulse Ox 99 98 Oxygen Delivery Method Room Air Positive well nourished and well developed General Appearance ED: well developed and NAD HEENT HEENT Narrative: Mild dry mucosal membranes. normocephalic and atraumatic Eyes PERRL, EOMs intact bilaterally and conjunctivae normal General Eye ED: Yes normal appearance of both eyes Neck no lymphadenopathy and supple General: Negative for tenderness Chest Wall Chest: Negative for tenderness Resp normal respiratory effort and normal air movement Effort and Inspection: symmetric chest movement; Negative for respiratory distress Cardio regular rate, regular rhythm and no murmurs Peripheral Pulses: pulses 2+ throughout GI normal to inspection, nondistended, normoactive bowel sounds and non-tender GI Narrative: Negative Worley's or McBurney's tenderness. No left lower quadrant pain. Palpation: Negative for guarding or rebound tenderness present Back/Spine no CVA tenderness and no thoracic nor lumbar tenderness Extremity normal to inspection General Extremety ED: Negative for edema or tenderness General Extremity: Negative for edema Neuro oriented x3 and no sensory deficits noted Sensorium / Orientation: awake and alert Skin no rashes or lesions noted and no wounds MDM MDM MDM Narrative Medical decision making narrative: Patient denies abdominal pain she has a soft abdomen reported diarrhea with abdominal bloating and constipation. Check abdominal labs are all normal. Creatinine 0.88. There is mild clinical dehydration with dry mucosal murmur she is given fluids. Urine notes 25 leukocytes 1+ mucus. She denies dysuria or frequency states there is decreased output. I sent for culture. Reevaluation clinically improved with IV fluids. She will continue oral fluids at home. She will monitor her symptoms. Return precautions. All questions answered. Lab Data Attestation: I reviewed the patient's lab results. Labs: Laboratory Results - last 24 hr 05/09/22 05/09/22 05/09/22 21:30 21:30 22:00 WBC 8.1 RBC 3.71 L Hgb 11.2 L Hct 35.9 L MCV 96.8 MCH 30.2 MCHC 31.2 L RDW Std Deviation 59.0 H RDW Coeff of [place] 16.7 H Plt Count 185 MPV 8.2 Immature Gran % (Auto) 0.900 Neut % (Auto) 66.2 Lymph % (Auto) 25.4 Starke % (Auto) 5.9 Eos % (Auto) 1.2 Baso % (Auto) 0.4 Absolute Neuts (auto) 5.4 Absolute Lymphs (auto) 2.06 Nucleated RBC % 0 Sodium 143 Potassium 3.8 Chloride 111 H Carbon Dioxide 25.0 Anion Gap 7 BUN 13 Creatinine 0.88 Estim Creat Clear Calc 47.00 Est GFR (MDRD) Af Amer 83 Est GFR (MDRD) Non-Af 68 BUN/Creatinine Ratio 14.7 Glucose 134 H Calcium 8.9 Total Bilirubin 0.10 L Direct Bilirubin < 0.05 AST 15 ALT 33 Alkaline Phosphatase 77 Total Protein 6.2 L Albumin 3.0 L Globulin 3.2 Albumin/Globulin Ratio 0.9 Urine Color Yellow Urine Clarity Clear Urine pH 6.0 Ur Specific [place] 1.020 Urine Protein Negative Urine Glucose (UA) Normal Urine Ketones Negative Urine Occult Blood 10 H Urine Nitrite Negative Urine Bilirubin Negative Urine Urobilinogen Normal Ur Leukocyte Esterase 25 H Urine RBC 0 SEEN Urine WBC 0-5 SEEN Ur Squamous Epith Cells 0 SEEN Urine Bacteria 0 SEEN Urine Mucus 1+ Discharge Plan Triage Chief Complaint: Abd Pain ED Provider: Jorge Bridges Dx/Rx/DC Orders Clinical Impression: Diarrhea, Dehydration Instructions: Dehydration, ED Diarrhea, Unknown Cause Prescriptions: No Action cholecalciferol (vitamin D3) 2,000 unit capsule 2,000 unit PO DAILY allopurinol 100 mg tablet 100 mg PO DAILY meloxicam 7.5 mg tablet 7.5 mg PO BID PRN (Reason: Pain) citalopram 20 MG tablet 30 mg PO DAILY candesartan 16 MG tablet 32 mg PO DAILY levothyroxine 50 mcg tablet 125 mcg PO DAILY Primary Care Provider: [facility] Genia Hopkins Referrals: [facility],Genia Bedoya [Primary Care Provider] - 3-5 Days if not improving Disposition Disposition: Home, Self Care Discharge Date/Time: 05/09/22 23:24
[2022-05-09] MEDS: 0.9% Normal Saline 1,000 ML 1000 ML IV (21:29)
[2022-05-09 21:38] LABS: Absolute Lymphocyte Count 2.06 X10^3/uL (0.83-4.51); Absolute Neutrophil Count 5.4 X10^3/uL (2.0-7.7); Basophil# 0.03 X10^3/uL; Basophil% 0.4 % (0-1); Eosinophils% 1.2 % (0-5); Hematocrit 35.9 % (37-47); Hemoglobin 11.2 g/dL (12.0-15.0); Lymphocyte # 2.06 X10^3/ul (0.83-4.51); Lymphocyte % 25.4 % (19-41); Mean Corp Hgb Conc 31.2 g/dL (32-36); Mean Corpuscular Hgb 30.2 pg (27.0-32.0); Mean Corpuscular Volume 96.8 fL (81-99); Mean Platelet Vol. 8.2 fl (6.2-12.0); Monocyte# 0.48 X10^3/uL; Monocyte% 5.9 % (0-10); NRBC Flagged by Analyzer 0 % (0-5); Neutrophil # 5.37 X10^3/uL (2.7-7.7); Neutrophil % 66.2 % (47-70); Platelet Count 185 K/mm3 (150-450); RBC Distribution Width CV 16.7 % (11.6-14.6); Red Blood Count 3.71 M/mm3 (4.2-5.4); White Blood Count 8.1 K/mm3 (4.4-11.0)
[2022-05-09 22:05] LABS: ALB/GLOB Ratio 0.9 RATIO (0.9-2.4); AST(SGOT) 15 U/L (15-37); Alanine Aminotransfer ALT/SGPT 33 U/L (13-56); Alkaline Phosphatase 77 U/L (45-117); Anion Gap 7 (5-15); BUN 13 mg/dL (7-18); BUN/Creat Ratio 14.7 RATIO (10-20); Bilirubin, Direct < 0.05 mg/dL (0.00-0.30); Calcium,Total 8.9 mg/dL (8.5-10.1); Chloride 111 mmol/L (98-107); Creatinine, Serum 0.88 mg/dL (0.55-1.02); EST Glomerular Filtration Rate 68 mL/min (>60); Est Glom Filt Rate - Afr Amer 83 mL/min (>60); Globulin 3.2 g/dL (2.2-4.2); Glucose 134 mg/dL (74-106); Potassium 3.8 mmol/L (3.5-5.1); Protein, Total 6.2 g/dL (6.4-8.2); Sodium Level 143 mmol/L (136-145)
[2022-05-09 22:06] LABS: Bacteria 0 SEEN /hpf (None Seen); Red Blood Cells-Urine 0 SEEN /hpf (0-5); Squamous Epithelial Cells - UA 0 SEEN /hpf (5-10)
[2022-05-09 22:07] LABS: Color, Urine Yellow (Yellow); Glucose, Dipstick Normal (Normal); Ketone-Dipstick Negative (Negative); Leukocyte Esterase-Dipstick 25 /ul (Negative); Nitrite-Dipstick Negative (Negative); Occult Blood-Urine 10 /ul (Negative); Protein-Dipstick Negative (Negative); Urine Bilirubin Dipstick Negative (Negative); Urine Clarity Clear (Clear); Urine Urobilinogen Normal (Normal)
[2022-05-09 22:19] LABS: Mucous, Urine 1+ /hpf (<or=2+); White Blood Cells 0-5 SEEN /hpf (0-5)
[2022-05-09 23:13] VITALS: BP 138/65; PULSE 71; RESP 15; O2SAT 98
== END 2022-05-09 23:24 | disposition home or self-care (01) ==
PROVIDERS: Emergency Provider Emergency Medicine; Visit Provider Emergency Medicine
DX: R19.7 Diarrhea, unspecified (principal); E86.0 Dehydration; I10 Essential (primary) hypertension; E07.9 Disorder of thyroid, unspecified; M19.90 Unspecified osteoarthritis, unspecified site; M10.9 Gout, unspecified; F41.9 Anxiety disorder, unspecified; F17.210 Nicotine dependence, cigarettes, uncomplicated; Z90.49 Acquired absence of other specified parts of digestive tract; Z79.899 Other long term (current) drug therapy
CPT/HCPCS: 80053; 80076; 81001; 85025; 87086; 87088; 96360; 96361; 99282; J7030; A4216

== ENCOUNTER 2022-08-06 11:56 | Emergency (ER) | payer MEDICAID, SELFPAY ==
[2022-08-06 11:58] VITALS: BP 150/80; PULSE 69; RESP 17; TEMP 35.9; O2SAT 97; BMI 35.2
--- NOTE | 2022-08-06 12:14 | CT_ITS ---
STUDY: CT BRAIN WITHOUT CONTRAST REASON FOR EXAM: Female, 62 years old. Headache RADIATION DOSAGE (If Supplied By Facility): CTDIvol = ( 44.99 ) mGy, DLP = ( 796.11 ) mGycm TECHNIQUE: Transaxial CT imaging of the brain was performed without administration of intravenous contrast material. Individualized dose optimization techniques were used for this CT. COMPARISON: No relevant priors. FINDINGS: Normal soft tissue structures. Normal calvarium. Normal size ventricles and extra-axial spaces for the patient''s age. Normal white matter tracts of the cerebral hemispheres. Normal basal ganglia and thalami. Normal brainstem. Normal cerebellum. There is no intracranial hemorrhage. There are no findings of an acute ischemic infarction. Normal visualized paranasal sinuses. CT/Brain/Head without Contrast IMPRESSION: Age consistent changes, no acute findings Electronically Signed: Ari Stallings MD at 13:20 EDT ,
[2022-08-06 12:36] LABS: Absolute Lymphocyte Count 1.63 X10^3/uL (0.83-4.51); Absolute Neutrophil Count 6.7 X10^3/uL (2.0-7.7); Basophil# 0.05 X10^3/uL; Basophil% 0.6 % (0-1); Eosinophil# 0.12 X10^3/uL; Eosinophils% 1.3 % (0-5); Hematocrit 39.8 % (37-47); Hemoglobin 12.4 g/dL (12.0-15.0); Lymphocyte # 1.63 X10^3/ul (0.83-4.51); Mean Corp Hgb Conc 31.2 g/dL (32-36); Mean Corpuscular Hgb 30.2 pg (27.0-32.0); Mean Corpuscular Volume 97.1 fL (81-99); Mean Platelet Vol. 8.4 fl (6.2-12.0); Monocyte# 0.45 X10^3/uL; NRBC Flagged by Analyzer 0 % (0-5); Neutrophil # 6.74 X10^3/uL (2.7-7.7); Neutrophil % 74.4 % (47-70); Platelet Count 284 K/mm3 (150-450); RBC Distribution Width CV 14.6 % (11.6-14.6); RBC Distribution Width SD 52.4 fl (35.1-43.9); White Blood Count 9.1 K/mm3 (4.4-11.0)
[2022-08-06] MEDS: Metoclopramide 10 MG/10 ML UDC PO (12:39)
[2022-08-06] MEDS: DiphenhydrAMINE 50 MG/ML Syringe 25 MG IV (12:39)
--- NOTE | 2022-08-06 12:40 | EX.ED.DYSGE1 ---
HPI <KAL Montero - Last Filed: 08/06/22 14:48> History of Present Illness Chief Complaint: Headache Narrative Narrative: 62-year-old female with history of hypertension, gout, anxiety, hypothyroidism presents to the emerged part with 2 weeks of ongoing headache. Patient states that headache began behind her eyes, is progressively gotten worse. Patient states have slight nausea, denies any vomiting. She denies any weakness to her upper or lower extremities. Patient did have some blurred vision yesterday however that has resolved. Patient is sensitive to light, movement. She is concerned that she might have a migraine headache, she has never had one before. Denies any neck pain, fever or chills. PFSH <KAL Montero - Last Filed: 08/06/22 14:48> [facility] Medical History Alcohol use Anemia Anxiety Arthritis CPAP (continuous positive airway pressure) dependence Difficulty balancing Difficulty swallowing Fatigue Gout Hemorrhoids History of diverticulitis History of stress test HTN (hypertension), benign Hypertension Knee pain Limb weakness Open wound Shortness of breath on exertion Smoker Thyroid disease Wears partial dentures Home Medications candesartan 16 mg tablet 32 mg PO DAILY 09/09/15 [History Last Taken Unknown] citalopram 20 mg tablet 30 mg PO DAILY 09/09/15 [History Last Taken Unknown] cholecalciferol (vitamin D3) 50 mcg (2,000 unit) capsule 2,000 unit PO DAILY 12/18/17 [History Last Taken Unknown] allopurinol 100 mg tablet 100 mg PO DAILY 12/31/19 [History Last Taken Unknown] levothyroxine 50 mcg tablet 125 mcg PO DAILY 05/11/21 [History Last Taken Unknown] meloxicam 7.5 mg tablet 7.5 mg PO BID PRN Pain 05/11/21 [History Last Taken Unknown] Allergy/AdvReac Type Severity Reaction Status Date / Time Iodinated Contrast Media Allergy Rash Verified 08/06/22 11:57 [DYEE] Sulfa (Sulfonamide Allergy Rash Verified 08/06/22 11:57 Antibiotics) Family History Brother Diabetes Mother Hypertension Kidney disease Daughter Thyroid disorder Father Cancer eye cancer Surgical History History of History of carpal tunnel surgery of left wrist Hx laparoscopic cholecystectomy Hx of colonoscopy Hx of release of tendon Social History Smoking Status: Current some day smoker tobacco type: cigarettes alcohol intake: current alcohol intake frequency: holidays/special occasions only Alcohol type: beer and wine ROS <KAL Montero - Last Filed: 08/06/22 14:48> ROS ED ROS Narrative Constitutional: Negative for fever, chills, weight loss, weakness Eyes: Negative for vision loss, double vision. Positive for blurred vision ENT: Negative for any sore throat, ear pain, congestion Cardiovascular: Negative for any chest pain, tightness, palpitations Respiratory: Negative for any cough, sputum production, hemoptysis, dyspnea, dyspnea on exertion, orthopnea Gastrointestinal: Negative for any abdominal pain, nausea, vomiting, diarrhea, constipation, blood in stool, blood in vomit : Negative for any urinary frequency, dysuria, retention, blood in urine Muscle skeletal: Negative for any muscle joint pain, stiffness, myalgias, arthralgias, neck pain, back pain Neurological: Negative for any, syncope, numbness or tingling, dizziness. Positive for headache, Skin: Negative for any rashes, lumps, itching, abrasions, lacerations Psychiatric: Negative for any depression, anxiety, stress, suicidal ideation, homicidal ideation Hematologic: Negative for any easy bruising, excessive bruising, easy bleeding Allergies: Negative for any eczema, hives, rash EXAM <KAL Montero - Last Filed: 08/06/22 14:48> Physical Exam Narrative Exam Narrative: Vital signs reviewed. HEET: Head normocephalic atraumatic, TMs clear bilaterally. Posterior pharynx is clear, moist mucous membranes. Nares clear bilaterally. Pupils are equal round reactive to light. Neck: Supple with no lymphadenopathy or tenderness. No signs of meningismus, negative jolt sign. Cardiac: Regular rate and rhythm no murmurs gallops or rubs, equal peripheral pulses bilaterally. Respiratory: Lungs clear to auscultation bilaterally. No chest tenderness. Abdomen: Soft, nontender, nondistended. No abdominal bruit or pulsatile masses. No hepatosplenomegaly Extremities: No peripheral edema, no signs of gross trauma or deformity. Active full range of motion of all extremities. Neuro: Cranial nerves II through XII intact, no focal neurological deficits. NIH score 0 Skin: Clean dry and intact with no rash, purpura, petechiae, vesicles or pustules. Backs/flank: No CVA tenderness, no midline spinal tenderness, no deformity. Psych: Normal mood and affect. No SI, HI or acute psychosis. Const Vital Signs: 08/06/22 11:58 08/06/22 14:48 08/06/22 13:57 Temperature 96.7 F L Temperature Source Temporal Pulse Rate 69 Respiratory Rate 17 16 Blood Pressure 150/80 H 136/84 H Blood Pressure Mean 103 101 Pulse Ox 97 Oxygen Delivery Method Room Air Positive well nourished and well developed General Appearance ED: well developed <Dr. Pipe Rush MD - Last Filed: 08/06/22 16:18> Physical Exam Const Vital Signs: 08/06/22 11:58 08/06/22 14:48 08/06/22 13:57 Temperature 96.7 F L Temperature Source Temporal Pulse Rate 69 Respiratory Rate 17 16 Blood Pressure 150/80 H 136/84 H Blood Pressure Mean 103 101 Pulse Ox 97 Oxygen Delivery Method Room Air MDM <KAL Montero - Last Filed: 08/06/22 14:48> MDM Lab Data Attestation: I reviewed the patient's lab results. Labs: Laboratory Results - last 24 hr 08/06/22 08/06/22 12:25 12:25 WBC 9.1 RBC 4.10 L Hgb 12.4 Hct 39.8 MCV 97.1 MCH 30.2 MCHC 31.2 L RDW Std Deviation 52.4 H RDW Coeff of [place] 14.6 Plt Count 284 MPV 8.4 Immature Gran % (Auto) 0.700 Neut % (Auto) 74.4 H Lymph % (Auto) 18.0 L [place] % (Auto) 5.0 Eos % (Auto) 1.3 Baso % (Auto) 0.6 Absolute Neuts (auto) 6.7 Absolute Lymphs (auto) 1.63 Nucleated RBC % 0 ESR 49 H Sodium 140 Potassium 4.6 Chloride 105 Carbon Dioxide 24.0 Anion Gap 11 BUN 12 Creatinine 0.84 Estim Creat Clear Calc 48.60 Est GFR (MDRD) Af Amer 88 Est GFR (MDRD) Non-Af 73 BUN/Creatinine Ratio 14.4 Glucose 97 Calcium 9.0 Radiography Diagnostic Testing: Clinical Impression(s) from Imaging Studies Brain CT 08/06/22 12:14 IMPRESSION: Age consistent changes, no acute findings Electronically Signed: Ari Stallings MD at 13:20 EDT Reading Location ID and State: [facility] / [place] , Service support , Treatment and Re-Evaluation Narrative: Patient appears well, patient appears nontoxic, vital signs are stable. Patient presents the emergency department with a progressive headache has been ongoing for the last 2 weeks. Patient was concerned that she might have a migraine headache. Due to the patient's age, a CT was completed to rule out any mass or hemorrhage. Patient CT scan was unremarkable for any acute findings. Patient did receive IV fluids, IV Toradol, Reglan, Benadryl. She also received basic laboratory values which were grossly unremarkable. On reassessment, the patient was still suffering from a headache that she rated an 8 out of 10. The patient did receive IV fluids, the patient also received 4 mg of IV morphine. On reassessment, the patient states to feel much better. At this time, I do not believe this is a migraine headache, I do believe the patient is not hydrating her self appropriately, she is also not been drinking coffee the last couple days which she does drink coffee daily. Patient will follow closely with her PCP. There is no evidence of any stroke, hemorrhage, electrolyte abnormality. Patient be diagnosed with a headache, she is instructed to rest and to follow-up outpatient. Given return precautions. <Dr. Pipe Rush MD - Last Filed: 08/06/22 16:18> [facility] Lab Data Labs: Laboratory Results - last 24 hr 08/06/22 08/06/22 12:25 12:25 WBC 9.1 RBC 4.10 L Hgb 12.4 Hct 39.8 MCV 97.1 MCH 30.2 MCHC 31.2 L RDW Std Deviation 52.4 H RDW Coeff of [place] 14.6 Plt Count 284 MPV 8.4 Immature Gran % (Auto) 0.700 Neut % (Auto) 74.4 H Lymph % (Auto) 18.0 L Upson % (Auto) 5.0 Eos % (Auto) 1.3 Baso % (Auto) 0.6 Absolute Neuts (auto) 6.7 Absolute Lymphs (auto) 1.63 Nucleated RBC % 0 ESR 49 H Sodium 140 Potassium 4.6 Chloride 105 Carbon Dioxide 24.0 Anion Gap 11 BUN 12 Creatinine 0.84 Estim Creat Clear Calc 48.60 Est GFR (MDRD) Af Amer 88 Est GFR (MDRD) Non-Af 73 BUN/Creatinine Ratio 14.4 Glucose 97 Calcium 9.0 Radiography Diagnostic Testing: Clinical Impression(s) from Imaging Studies Brain CT 08/06/22 12:14 IMPRESSION: Age consistent changes, no acute findings Electronically Signed: Ari Stallings MD at 13:20 EDT , Treatment and Re-Evaluation Narrative: Patient appears well, patient appears nontoxic, vital signs are stable. Patient presents the emergency department with a progressive headache has been ongoing for the last 2 weeks. Patient was concerned that she might have a migraine headache. Due to the patient's age, a CT was completed to rule out any mass or hemorrhage. Patient CT scan was unremarkable for any acute findings. Patient did receive IV fluids, IV Toradol, Reglan, Benadryl. She also received basic laboratory values which were grossly unremarkable. On reassessment, the patient was still suffering from a headache that she rated an 8 out of 10. The patient did receive IV fluids, the patient also received 4 mg of IV morphine. On reassessment, the patient states to feel much better. At this time, I do not believe this is a migraine headache, I do believe the patient is not hydrating her self appropriately, she is also not been drinking coffee the last couple days which she does drink coffee daily. Patient will follow closely with her PCP. There is no evidence of any stroke, hemorrhage, electrolyte abnormality. Patient be diagnosed with a headache, she is instructed to rest and to follow-up outpatient. Given return precautions. Cornici- Attending note Patient was seen by me, I evaluated her, she is presenting with a headache for about a week, it was gradual in onset and persistent, she keeps telling us that she has vision changes however she mostly has photophobia. She has no other neurological symptoms, she is given analgesia and improved, she has no signs or symptoms of temporal arteritis, she appears well should be discharged in stable condition. Discharge Plan Triage Chief Complaint: Headache ED Midlevel Provider: Pipe Glover ED Provider: Pipe Rush Dx/Rx/DC Orders Clinical Impression: Headache, Acute dehydration Instructions: Self-Care for Headaches, ED Dehydration (Adult) Prescriptions: No Action cholecalciferol (vitamin D3) 2,000 unit capsule 2,000 unit PO DAILY allopurinol 100 mg tablet 100 mg PO DAILY meloxicam 7.5 mg tablet 7.5 mg PO BID PRN (Reason: Pain) citalopram 20 MG tablet 30 mg PO DAILY candesartan 16 MG tablet 32 mg PO DAILY levothyroxine 50 mcg tablet 125 mcg PO DAILY Primary Care Provider: [facility] Genia Hopkins [facility] - Disposition Disposition: Home, Self Care Discharge Date/Time: 08/06/22 14:57
[2022-08-06 12:48] LABS: Anion Gap 11 (5-15); BUN 12 mg/dL (7-18); BUN/Creat Ratio 14.4 RATIO (10-20); Chloride 105 mmol/L (98-107); Creatinine, Serum 0.84 mg/dL (0.55-1.02); EST Glomerular Filtration Rate 73 mL/min (>60); Est Glom Filt Rate - Afr Amer 88 mL/min (>60); Glucose 97 mg/dL (74-106); Potassium 4.6 mmol/L (3.5-5.1); Sodium Level 140 mmol/L (136-145)
[2022-08-06] MEDS: 0.9% Normal Saline 1,000 ML 1000 ML IV (12:55)
[2022-08-06 13:05] LABS: Erythrocyte Sedimentation Rate 49 mm/hr (0-30)
[2022-08-06] MEDS: Ketorolac 15 MG/ML Vial IV (13:35)
[2022-08-06 13:57] VITALS: BP 136/84
[2022-08-06] MEDS: Morphine 4 MG/ML Syringe IV (14:07)
[2022-08-06 14:48] VITALS: RESP 16
== END 2022-08-06 14:57 | disposition home or self-care (01) ==
PROVIDERS: Nurse Practitioner; Emergency Provider Emergency Medicine; Visit Provider Emergency Medicine
DX: R51.9 Headache, unspecified (principal); E86.0 Dehydration; I10 Essential (primary) hypertension; E03.9 Hypothyroidism, unspecified; M19.90 Unspecified osteoarthritis, unspecified site; M10.9 Gout, unspecified; F41.9 Anxiety disorder, unspecified; F17.210 Nicotine dependence, cigarettes, uncomplicated; Z72.89 Other problems related to lifestyle; Z79.899 Other long term (current) drug therapy
CPT/HCPCS: 70450; 80048; 85025; 85652; 96361; 96374; 96375; 99284; J7030; A4216

== ENCOUNTER 2022-08-07 16:34 | Emergency (ER) | payer MEDICAID, SELFPAY ==
[2022-08-07 16:36] VITALS: BP 145/95; PULSE 76; RESP 17; TEMP 36.6; O2SAT 96; BMI 35.2
--- NOTE | 2022-08-07 16:51 | EDS_ITS ---
HPI History of Present Illness Chief Complaint: Eye Problem Narrative Narrative: Patient presents with headache and blurred vision. We saw her yesterday she had a normal work-up and improvement in her headache however today she saw ophthalmology and was found to have bilateral papilledema. Her headache is controlled she does not need analgesia but she still has some blurred vision. No other neurological symptoms no weakness paresthesias no confusion no nausea or vomiting. [facility] Medical History Alcohol use Anemia Anxiety Arthritis CPAP (continuous positive airway pressure) dependence Difficulty balancing Difficulty swallowing Fatigue Gout Hemorrhoids History of diverticulitis History of stress test HTN (hypertension), benign Hypertension Knee pain Limb weakness Open wound Shortness of breath on exertion Smoker Thyroid disease Wears partial dentures Home Medications candesartan 16 mg tablet 32 mg PO DAILY 09/09/15 [History Last Taken Unknown] citalopram 20 mg tablet 30 mg PO DAILY 09/09/15 [History Last Taken Unknown] cholecalciferol (vitamin D3) 50 mcg (2,000 unit) capsule 2,000 unit PO DAILY 12/18/17 [History Last Taken Unknown] allopurinol 100 mg tablet 100 mg PO DAILY 12/31/19 [History Last Taken Unknown] levothyroxine 50 mcg tablet 125 mcg PO DAILY 05/11/21 [History Last Taken Unknown] meloxicam 7.5 mg tablet 7.5 mg PO BID PRN Pain 05/11/21 [History Last Taken Unknown] Allergy/AdvReac Type Severity Reaction Status Date / Time Iodinated Contrast Media Allergy Rash Verified 08/07/22 16:36 [DYEE] Sulfa (Sulfonamide Allergy Rash Verified 08/07/22 16:36 Antibiotics) Family History Brother Diabetes Mother Hypertension Kidney disease Daughter Thyroid disorder Father Cancer eye cancer Surgical History History of History of carpal tunnel surgery of left wrist Hx laparoscopic cholecystectomy Hx of colonoscopy Hx of release of tendon Social History Smoking Status: Current some day smoker tobacco type: cigarettes alcohol intake: current alcohol intake frequency: holidays/special occasions only Alcohol type: beer and wine ROS ROS ED ROS Narrative Past medical history: Reviewed Medications: Reviewed Social history: Noncontributory Review of systems: All systems negative except as indicated General: No fever Eyes: As in HPI ENT: No upper airway congestion, normal voice Neck: No neck pain Cardiovascular: No chest pain Respiratory: No shortness of breath or cough Gastrointestinal: No abdominal pain, nausea vomiting or diarrhea Genitourinary: No dysuria Musculoskeletal: Denies myalgias no difficulty with ambulation Skin: No rash Neurological: No memory loss, confusion or any focal weakness, headache as in HPI Psych: No recent behavioral changes Hematologic: No easy bleeding or easy bruising EXAM Physical Exam Narrative Exam Narrative: Physical exam General: Patient is relatively comfortable Head: Normocephalic, Atraumatic Eyes: Conjunctiva not pale, pupils are not are reactive, they are somewhat dilated from the ophthalmology ENT: Moist mucous membranes Neck: Supple, Nontender, No lymphadenopathy Cardiovascular: Regular rate, Regular rhythm Respiratory: No distress, CTA bilaterally Abdomen: Soft, Nontender, Nondistended Back: Nontender, Normal Inspection. Negative for: CVA tenderness Extremities: Nontender, No edema Skin: Normal color, No rash Neurological: Alert, Normal Strength, Normal Sensation. Psychological: Normal affect Const Vital Signs: 08/07/22 16:36 Temperature 97.8 F Temperature Source Temporal Pulse Rate 76 Respiratory Rate 17 Blood Pressure 145/95 H Blood Pressure Mean 111 Pulse Ox 96 Oxygen Delivery Method Room Air [facility] Treatment and Re-Evaluation Narrative: Patient could MS, sinus venous thrombosis there is the possibility of temporal arteritis however ESR was 49 its bilateral and she is only mild smoker. We will talk to [facility] for transfer per patient's request we cannot keep her here because we do not have inpatient neurology. Discharge Plan Triage Chief Complaint: Eye Problem ED Provider: Pipe Rush Dx/Rx/DC Orders Clinical Impression: Headache, Blurred vision Prescriptions: No Action cholecalciferol (vitamin D3) 2,000 unit capsule 2,000 unit PO DAILY allopurinol 100 mg tablet 100 mg PO DAILY meloxicam 7.5 mg tablet 7.5 mg PO BID PRN (Reason: Pain) citalopram 20 MG tablet 30 mg PO DAILY candesartan 16 MG tablet 32 mg PO DAILY levothyroxine 50 mcg tablet 125 mcg PO DAILY Primary Care Provider: [facility] Genia Hopkins [facility]Genia Bedoya [Primary Care Provider] - Disposition Disposition: DC/Tx to Another Type of HCF
[2022-08-07 19:30] VITALS: BP 171/79; PULSE 68; RESP 16; O2SAT 99
[2022-08-07 21:22] VITALS: BP 164/78; PULSE 168; PULSE 70; RESP 16; TEMP 36.6; O2SAT 99
== END 2022-08-07 22:41 | disposition short-term general hospital (02) ==
PROVIDERS: Emergency Provider Emergency Medicine; Visit Provider Emergency Medicine
DX: H53.8 Other visual disturbances (principal); R51.9 Headache, unspecified; I10 Essential (primary) hypertension; F17.210 Nicotine dependence, cigarettes, uncomplicated; Z72.89 Other problems related to lifestyle; Z79.899 Other long term (current) drug therapy; Z80.8 Family history of malignant neoplasm of other organs or systems
CPT/HCPCS: 87811; 99283; A4216

== ENCOUNTER 2023-07-06 10:30 | Outpatient (RCR) | payer MEDICAID, SELFPAY ==
--- NOTE | 2023-05-30 15:19 | HP.PTEVAL ---
Patient's Visit Information Visit Information Visit Information: NOEL BISHOP is a 62 year old F referred to Physical Therapy by Dr. Moo Soto DO with a diagnosis of Hip Bursitis. Date of Evaluation: 05/30/23 Physical Therapist: Elisa Morejon DPT Visit Plan Frequency: 2x /Week Duration: 4 Weeks Plan: Aquatics- focus on LE and core strength/stabilization Subjective Subjective: Patient reports her knee started popping and it didn't go away then the hip started hurting- she went to see the MD diagnosed with hip bursitis and sent to PT. She had 2 injections in her hip about a week ago and it helped and its starting to hurt again. She is taking the Meloxicam which is also helping. This has been going on a couple of month- insidious onset. Pain is on the right anterior hip- does radiate to the outside of the knee but does not radiate down. Describes the pain as dull. Worst in the last 4 weeks 8/10, about a 5/10 today. Agg: not moving, sitting for more than an hour Eases: elevation. Best: 0/10. No N/T in the toes. She does not have back pain. Sleeps in a hospital bed and the bottom raises up. Sleep: hard to get comfortable sometimes. 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 She does not have an exercise routine. Recent x-rays in chart- knee/hip and back. Goals: stop her knee from clicking and be painfree Objective Objective: Objective: Objective: Posture: FH, RS- can correct with verbal cues but is unable to maintain in both sitting and standing Gait: forward posture- mildly antalgic- decreased stance on the right LE-mild Trendelenburg- fair kenan HR/TR: able with UE A SLS: 10 sec with moderate hip drop Sit to Stand: no UE A to rise from chair Sensation: WNL to gross touch bilateral LE ROM: WFL in all planes of the lumbar and LE Strength: Core: fair minus Hip: 4/5 throughout , Knee: 4+/5, Ankle: 5/5. Palpation: tender along great troch and ITBand Flex: HS: mod, Gastroc: mod Stairs: asc/desc recip with 1 HR- poor control with descent Special Tests L/S Slump test left side: Negative L/S Slump test right side: Negative L/S Left Straight Leg Raise: Negative L/S Right Straight Leg Raise: Negative R Hip JOSE - Intraarticular Pathology: Positive R Hip FADDIR - Labrum: Positive R Hip Trendelenberg - Glut Medius: Positive R Knee Valgus - MCL: Positive R Knee Varus - LCL: Positive Goals Goal 1:: Patient will be I with HEP and progression Goal Time Frame: 4-6 Weeks Goal 2:: Patient will ambulate >300 feet with a normalized gait pattern Goal Time Frame: 4-6 Weeks Goal 3:: Patient will maintain proper posture t/o tx session to demo increased core s/s Goal Time Frame: 4-6 Weeks Goal 4:: Patient will report 80% improvement Goal Time Frame: 4-6 Weeks Rehabilitation Potential Physical Therapy Diagnosis: Patient presents with hypomobility- she has decreased LE and core strength/stabilization, flex and muscular endurance leading to poor posture and increased pain with ADL's. Rehabilitation Potential: Good Anticipated Interventions Patient/Client Instruction: Educate patient on: Benefits of Fitness Program Therapeutic Exercise to Include: Strength training, Endurance training, Balance training, Coordination, Agility training, Body mechanics, Postural training, Flexibilty training, Gait and locomotor training, Neuromotor development, In an aquatic setting, Dynamic Lumbar Stabilization and Scapular Strength/Stabilization For the Purpose of:: To improve muscle performance and motor function Text: Thank you for the opportunity to evaluate your patient. For Medicare and Medicare HMO plans, please review the plan of care and approve it. It will need to be FAXED BACK to us at [phone] for Medicare purposes. For Medicare only, by signing this I certify the plan of care. Please let me know if there are questions or concerns regarding this plan of care. Physician Signature: Date:
--- NOTE | 2023-07-06 10:53 | HP.PTDCSUM ---
Discharge Summary D/C summary: It has been my pleasure to treat NOEL BISHOP referred by Dr. Moo Soto DO, with the diagnosis of Hip Bursitis for a total of 8 visit(s). Discharge Date: Please see the following information for a summary of their discharge status. Subjective Subjective: Patient reports that she has improved-she is moving better with less pain. She feels that she is 90% better. The knee still has some popping and clicking. Worst: 3/10 Best: 0/10. When she does have pain its in the thigh. Pain RLE: Pain Intensity (Out of 10): 2 LLE: Pain Intensity (Out of 10): 2 Overall Improvement % Improvement: 90 Objective Objective/Function: Posture: fair throughout in both sitting and standing Gait: no deviation noted HR/TR: able with UE A SLS: 15 sec with no hip drop Sit to Stand: no UE A to rise from chair Sensation: WNL to gross touch bilateral LE ROM: WFL in all planes of the lumbar and LE Strength: Core: fair plus Hip: 4+/5 throughout , Knee: 5/5, Ankle: 5/5. Flex: HS: mod, Gastroc: mod Stairs: asc/desc recip without HR Goals Goal 1:: Patient will be I with HEP and progression Goal Progress: Goal Met Goal 2:: Patient will ambulate >300 feet with a normalized gait pattern Goal Progress: Goal Met Goal 3:: Patient will maintain proper posture t/o tx session to demo increased core s/s Goal Progress: Goal Met Goal 4:: Patient will report 80% improvement Goal Progress: Goal Met Plan Plan: Discharge to I HEP Aquatics- focus on LE and core strength/stabilization D/C Information d/c sentence: If there are questions or concerns regarding this patient's physical therapy, please feel free to call me at [phone]. Thank you for the referral of this patient. Sincerely, Elisa Morejon, DPT Balance/Gait/Functional tests Balance/Special Test Scores Lower Extremity Functional Score: 52 Improvement % Improvement: 90
== END 2023-07-06 12:30 | disposition home or self-care (01) ==
LOC: PT 10:30
PROVIDERS: Referring Provider Orthopaedic Surgery; Visit Provider Orthopaedic Surgery
DX: M70.61 Trochanteric bursitis, right hip (principal); M76.31 Iliotibial band syndrome, right leg; M51.36 Other intervertebral disc degeneration, lumbar region
CPT/HCPCS: 97113; 97162; 97164

== ENCOUNTER 2023-08-20 10:30 | Outpatient (RCR) | payer MEDICARE, MEDICAID, SELFPAY ==
--- NOTE | 2023-08-08 11:00 | HP.PTEVAL_ITS ---
Patient's Visit Information Visit Information Visit Information: NOEL BISHOP is a 63 year old F referred to Physical Therapy by Dr. Moo Soto DO with a diagnosis of B shoulder OA and inflammation. Date of Evaluation: 08/08/23 Physical Therapist: Geovani Wall, DPT, OCS, CSCS Visit Plan Frequency: 2-3x /Week Duration: 4-6 Weeks Plan: 2-3x/week for 4-6 as needed. First 6 visits please do US R shoulder nonthermal, grade 1-2 g-h mobs, pec stretches and gentle cuff and postural strength. May do TENS if painful at rest.Treatment other than US should be B shoulders. Then EG to recheck and progress to more aggressive ex HEP or possibly pool for [facility] prophylaxis. Subjective Subjective: Overexertion of both shoulders. Working at [employer] and volunteered for job reaching out in front of her. 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 Top of both shoulders hurts since that job end of June, was fine prior to that. Had two injections last week which somewhat helped but still barron with movements. Comfortable 3/10 at rest. sleeping is difficult to roll and get on sides. 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 Basic ADLs are going well but painful. Pain B shoulders: Pain Intensity (Out of 10): 3 Pain Intensity Range: 0, 3, 4 and 10 Comment: R>L Objective Objective: Forward head and protracted scap posture. Tender to touch R supraspinatus max and L min, some tenderness R supra belly and UT. AROM cervical , elbow and wrist are good and without pain, AROM L shoulder WFL, R shoulder full aROM but pain end range of elevation adn er and IR. reflexes 2/3 bi and tri sensation UE WNL to gross light touch. Strength R er and empty can are painful and weaker 4- vs 4 in other shoulder movements R, strength L is 4, strength elbow and wrist and thumb flexion. + HK, + neer , - ext rotation lag, - drop arm on R. Balance/Special Test Scores Quick DASH Score: 68.1800 Goals Goal 1:: 0/10 pain at rest consistently Goal Time Frame: 2-4 Weeks Goal 2:: sleep without waking. Goal Time Frame: 2-4 Weeks Goal 3:: Patient feel 80% better in overall shoulder pain and full aROM without pain Goal Time Frame: 4-6 Weeks Goal 4:: i appropriate [facility] HEp for posture and RC strength, HEP or pool Goal Time Frame: 4-6 Weeks Goal 5:: quick dash score 20 or less Goal Time Frame: 4-6 Weeks Rehabilitation Potential Physical Therapy Diagnosis: B shoulder impingement supraspinatus tendonitis. Rehabilitation Potential: Good Anticipated Interventions Patient/Client Instruction: Educate patient on: Condition and Plan of Care For the Purpose of:: To decrease pain, To decrease swelling/inflammation, To improve nutrient delivery to tissue and To increase tolerance to activity/condition/position Therapeutic Exercise to Include: Strength training, Postural training, Flexibilty training, Passive ROM and Active ROM For the Purpose of:: To decrease pain, To decrease swelling/inflammation, To increase ROM, To improve nutrient delivery to tissue and To increase tolerance to activity/condition/position Manual Therapy Techniques to Include: Mobilization and Passive ROM For the Purpose of:: To decrease pain, To increase ROM and To improve nutrient delivery to tissue TENS: Yes Cryotherapy (ice pack, ice massage): Yes Ultrasound (thermal/non thermal): Yes (nonthermal) For the Purpose of:: To decrease pain and To decrease swelling/inflammation Text: Thank you for the opportunity to evaluate your patient. For Medicare and Medicare HMO plans, please review the plan of care and approve it. It will need to be FAXED BACK to us at [phone] for Medicare purposes. For Medicare only, by signing this I certify the plan of care. Please let me know if there are questions or concerns regarding this plan of ca re. Physician Signature: Date:
--- NOTE | 2023-10-16 11:37 | HP.PT.NRP ---
Patient Information Patient Information: NOEL BISHOP was seen in my office for initial evaluation on 08/08/23. The following Plan of Care was established for this patient: POC Established Initial Frequency: 2-3x /Week Initial Duration: 4-6 Weeks Anticipated Interventions Patient/Client Instruction: Educate patient on: Condition and Plan of Care For the Purpose of:: To decrease pain, To decrease swelling/inflammation, To improve nutrient delivery to tissue and To increase tolerance to activity/condition/position Therapeutic Exercise to Include: Strength training, Postural training, Flexibilty training, Passive ROM and Active ROM For the Purpose of:: To decrease pain, To decrease swelling/inflammation, To increase ROM, To improve nutrient delivery to tissue and To increase tolerance to activity/condition/position Manual Therapy Techniques to Include: Mobilization and Passive ROM For the Purpose of:: To decrease pain, To increase ROM and To improve nutrient delivery to tissue TENS: Yes Cryotherapy (ice pack, ice massage): Yes Ultrasound (thermal/non thermal): Yes (nonthermal) For the Purpose of:: To decrease pain and To decrease swelling/inflammation Last Seen Last Seen: This patient was last seen in our office 08/20/23. Pertinent comments regarding their Physical therapy will appear below: Pt seen 6 visits of POC and was 90% improved. She was to f/u 2 weeks later but did not schedule or attend. AT this point, it has been over 5 weeks and I will discontinue due to nonattendance. At this point I will be discontinuing this patient from physical therapy. I would be happy to see this patient again in the future if found appropriate by the physician. Thank you! Geovani Wall, DPT, OCS, CSCS Balance/Gait/Functional tests Balance/Special Test Scores Quick DASH Score: 68.1800
== END 2023-08-20 19:00 | disposition home or self-care (01) ==
LOC: PT 10:30
PROVIDERS: Referring Provider Orthopaedic Surgery; Visit Provider Orthopaedic Surgery
DX: M19.011 Primary osteoarthritis, right shoulder (principal); M19.012 Primary osteoarthritis, left shoulder; M25.511 Pain in right shoulder; M25.512 Pain in left shoulder
CPT/HCPCS: 97035; 97110; 97140; 97161

== ENCOUNTER → 2024-08-22 | Outpatient (CLI) | payer MEDICARE, SELFPAY ==
--- NOTE | 2024-08-22 07:41 | MRI_ITS ---
STUDY: MRI LEFT KNEE REASON FOR EXAM: Female, 64 years old. LT MEDIAL KNEE PAIN AND INSTABILITY POST FALL, PREVIOUS KNEE XRAYS TECHNIQUE: Standardized fat and water weighted pulse sequences were obtained in all 3 orthogonal planes. COMPARISON: X-ray of the left knee dated July 28, 2024. FINDINGS: Diffuse degenerative tearing of the body of the medial meniscus is present. A moderate size mixed oblique and radial tear also present in the middle and inner one third aspect of the posterior horn, with surrounding intrasubstance degenerative signal. The anterior horn is normal.. There is diffuse, greater than 50% thickness articular cartilage loss of the medial femorotibial compartment. There is mild osteoarthritic spur formation of the medial knee compartment. Normal medial collateral ligamentous complex (MCL). Normal distal semimembranosus, gracilis and semitendinosus tendons. Normal lateral meniscus. There is diffuse, less than 50% thickness articular cartilage loss of the lateral femorotibial compartment. Normal lateral femoral condyle and tibial plateau. Normal proximal tibiofibular articulation. Normal lateral collateral (fibular) ligament. Normal popliteus tendon. Normal biceps femoris tendon. Normal anterior cruciate ligament (ACL). Normal posterior cruciate ligament (PCL). Normal congruent patellofemoral articulation. There is diffuse, less than 50% thickness articular cartilage loss of the patellofemoral compartment. Normal medial and lateral patellar retinaculum. Normal quadriceps tendon. Normal patellar tendon. Normal Hoffa''s fat pad. There is a small volume joint effusion. A small Yo''s cyst is present. The soft tissues are unremarkable. The otherwise visualized osseous structures are unremarkable. MRI/Lower Ext Joint Only (Routine) IMPRESSION: 1. Tears of the body and posterior horn of the medial meniscus Electronically Signed: Mykel Jackson MD at 10:08 EDT ,
== END | disposition home or self-care (01) ==
PROVIDERS: PCP Internal Medicine; Referring Provider Orthopaedic Surgery; Visit Provider Orthopaedic Surgery
DX: M25.562 Pain in left knee (principal)
CPT/HCPCS: 73721

== ENCOUNTER 2024-10-27 12:30 | Outpatient (RCR) | payer MEDICARE, SELFPAY ==
--- NOTE | 2024-09-30 08:56 | HP.PTEVAL_ITS ---
Patient's Visit Information Visit Information Visit Information: NOEL BISHOP is a 64 year old F referred to Physical Therapy by Dr. Moo Soot DO with a diagnosis of L knee DJD, acute medial meniscal tear of L knee. Date of Evaluation: 09/29/24 Physical Therapist: Lauro Wilson DPT Visit Plan Frequency: 2x /Week Duration: 6 Weeks Plan: 1) strengthening of L hip, quad, HS in aquatic setting 2) gentle L knee extension ROM progression. progress to [facility] Subjective Subjective: Pt. is here today for her initial evaluation with diagnosis of L knee DJD, acute medial meniscal tear of L knee. Pt. reports fallings earlier this year and hurting her knee. Pt. was actually scheduled for surgery then was denied by insurance. Pt. is now trying to manage conservatively. Pt. reports increased pain with standing, walking, stairs, work activities, squatting. Decreases pain: ice, heat and off loading. Pt. denies N/T. She reports pain at medial aspect of her knee as well as posterior medial aspect. Pt. does report that her knee gives out on her at times. Pt. has not been falling, but her knee does buckling on her. 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 Pain L knee: Pain Intensity (Out of 10): 4 Pain Intensity Range: 3 and 8 Objective Objective: POSTURE: Pt. has decent posture in stance. Slightly wide ADELINE. Pt. lack TKE on L side, only slightly. PALPATION: pt. has tenderness at medial joint line and more so at posterior aspect of medial joint line. NEURO: Pt. has normal sensation in BLEs. Pt. has 2+ patellar and achilles. Pt. is able to rise on heels and toes without issues. ROM: L knee: 0-3-129deg. Pt. has normal HS length. MMT: R knee: flex: 32.2#, ext: 42.4#; hip: flexion 21.1#, abd 18.1#. LLE: knee: ext 28.5#, flexion 18.5#: hip: flexion 19.5#, abd 17.1#. GAIT: pt. ambulates with antalgic pattern. Slight lack of TKE on L side. Stiff with swing phase as well. STAIRS: Pt. is able to negotiate. She was able to ascend with reciprocal pattern, but painful and difficult during L loading phase. Descending was more difficult to complete due to L knee pain and difficulty controlling her descent. Balance/Special Test Scores Lower Extremity Functional Score: 30 Goals Goal 1:: LTG: pt. to be I with HEP for both aquatic and land exercises. Goal Time Frame: 4-6 Weeks Goal 2:: STG: Pt. to sleep throughout the night without increase in symptoms. Goal Time Frame: 2-4 Weeks Goal 3:: LTG: Pt. to have full L knee extension allowing for better gait pattern. Goal Time Frame: 4-6 Weeks Goal 4:: LTG: Pt. to have symmetrical strength between BLEs. Goal Time Frame: 4-6 Weeks Goal 5:: LTG: Pt. to have normal gait pattern without increase in L knee symptoms. Goal Time Frame: 4-6 Weeks Goal 6:: LTG: Pt. to be able to negotiate 1 flight of stairs with 1 HR without increase in L knee pain. Goal Time Frame: 4-6 Weeks Rehabilitation Potential Physical Therapy Diagnosis: Pt. has signs and symptoms consistent with L knee DJD, acute medial meniscal tear of L knee. Pt. has decreased extension of her L knee as well as some marked weakness in her L distal LE. Pt. is also limited with her functional activities secondary to pain. Pt. would benefit from PT to address the above limitations progressing back to all recreational and work activities without limitations. Rehabilitation Potential: Good Anticipated Interventions Patient/Client Instruction: Educate patient on: Condition, Plan of Care, Risk Factors and Benefits of Fitness Program For the Purpose of:: To improve decision making, To facilitate caregiver knowledge, To improve self management, To prevent re-injury, To improve ability to perform tasks related to life management and To improve tolerance to ADL's Therapeutic Exercise to Include: Strength training, Power training, Balance training, Postural training, Flexibilty training, In an aquatic setting, Passive ROM and Active ROM For the Purpose of:: To decrease pain, To increase ROM, To improve nutrient delivery to tissue, To increase oxygenation perfusion, To improve muscle performance and motor function, To improve ability to perform ADL's, To increase tolerance to activity/condition/position and To improve performance and independence with ADL's Text: Thank you for the opportunity to evaluate your patient. For Medicare and Medicare HMO plans, please review the plan of care and approve it. It will need to be FAXED BACK to us at [phone] for Medicare purposes. For Medicare only, by signing this I certify the plan of care. Please let me know if there are questions or concerns regarding this plan of care. Physician Signature: Date:
== END 2024-10-27 19:00 | disposition home or self-care (01) ==
LOC: PT 12:30
PROVIDERS: PCP Internal Medicine; Referring Provider Orthopaedic Surgery; Visit Provider Orthopaedic Surgery
DX: S83.242D Other tear of medial meniscus, current injury, left knee, subsequent encounter (principal); M17.12 Unilateral primary osteoarthritis, left knee
CPT/HCPCS: 97113; 97161

== ENCOUNTER 2025-01-06 19:52 | Inpatient (IN) | payer MEDICARE, SELFPAY ==
[2025-01-06 19:54] VITALS: BP 157/82; PULSE 82; RESP 16; TEMP 37.2; O2SAT 99
[2025-01-06 21:50] LABS: Absolute Lymphocyte Count 2.11 X10^3/uL (0.83-4.51); Absolute Neutrophil Count 10.9 X10^3/uL (2.0-7.7); Basophil# 0.06 X10^3/uL; Basophil% 0.4 % (0-1); Eosinophil# 0.09 X10^3/uL; Eosinophils% 0.6 % (0-5); Hematocrit 38.7 % (37-47); Hemoglobin 11.9 g/dL (12.0-15.0); Lymphocyte # 2.11 X10^3/ul (0.83-4.51); Lymphocyte % 14.9 % (19-41); Mean Corp Hgb Conc 30.7 g/dL (32-36); Mean Corpuscular Volume 94.2 fL (81-99); Mean Platelet Vol. 8.8 fl (6.2-12.0); Monocyte# 0.91 X10^3/uL; Monocyte% 6.4 % (0-10); NRBC Flagged by Analyzer 0 % (0-5); Neutrophil # 10.89 X10^3/uL (2.7-7.7); Neutrophil % 77.1 % (47-70); Platelet Count 301 K/mm3 (150-450); RBC Distribution Width CV 15.9 % (11.6-14.6); RBC Distribution Width SD 54.2 fl (35.1-43.9); Red Blood Count 4.11 M/mm3 (4.2-5.4); White Blood Count 14.1 K/mm3 (4.4-11.0)
[2025-01-06 21:53] LABS: Bacteria 0 SEEN /hpf (None Seen); Mucous, Urine 0 SEEN /hpf (<or=2+); White Blood Cells 0 SEEN /hpf (0-5)
[2025-01-06 22:00] LABS: Color, Urine Yellow (Yellow); Glucose, Dipstick Normal (Normal); Ketone-Dipstick Negative (Negative); Leukocyte Esterase-Dipstick Negative /ul (Negative); Nitrite-Dipstick Negative (Negative); Occult Blood-Urine Negative /ul (Negative); Protein-Dipstick 15 mg/dl (Negative); Specific Gravity, Urine 1.015 (1.002-1.030); Urine Bilirubin Dipstick Negative (Negative); Urine Clarity Clear (Clear); Urine Urobilinogen Normal (Normal)
[2025-01-06 22:34] LABS: ALB/GLOB Ratio 1.3 RATIO (0.9-2.4); AST(SGOT) 14 U/L (<=31); Alanine Aminotransfer ALT/SGPT 12 U/L (<=34); Albumin, Serum 4.2 g/dL (3.4-4.8); Alkaline Phosphatase 109 U/L (35-104); Anion Gap 14 (5-15); BUN 14 mg/dL (4-19); Calcium 9.8 mg/dL (7.6-11.0); Carbon Dioxide 21.4 mmol/L (22.0-29.0); Chloride 102 mmol/L (96-108); Creatinine, Serum 0.8 mg/dL (0.6-1.0); EST Glomerular Filtration Rate 78 (>60); Globulin 3.1 g/dL (2.2-4.2); Glucose 122 mg/dL (70-99); Potassium 4.8 mmol/L (3.3-5.1); Protein, Total 7.3 g/dL (5.9-8.4); Sodium Level 137 mmol/L (133-145)
[2025-01-06 22:45] LABS: Red Blood Cells-Urine 0 SEEN /hpf (0-5); Squamous Epithelial Cells - UA 0-5 SEEN /hpf (5-10)
[2025-01-06 23:08] VITALS: BP 146/104; PULSE 78; RESP 16; O2SAT 98
[2025-01-07] VITALS (8 sets, daily range): BP systolic 97–140; BP diastolic 55–93; PULSE 53–70; RESP 15–18; TEMP 36.4–37; O2SAT 95–98; BMI 35.6
--- NOTE | 2025-01-07 00:22 | EX.ED.DYSGE1 ---
HPI History of Present Illness Chief Complaint: Flank Pain Informant: patient Onset/Context/Timing Onset: Days (2) Context: Sudden Onset Timing: Continuous Quality: Spasm, dull Location: Left lumbar Worsened by: Lifting, movement Relieved by: Nothing Narrative Narrative: Patient presents with left low back pain that has been constant for the past 2 days. Patient states it began rather suddenly. Patient states she was doing some lifting when the pain began. Patient describes her pain as a spasm and dull pain. Patient states it is worse over the left lower lumbar area. Patient states it is worse with certain movements. Patient states nothing seems to help with it. Patient denies any radiation of the pain. Patient admits to a cough and some shortness of breath. Patient denies any fevers or chills. Patient denies any bowel or bladder changes. Patient denies any saddle anesthesia. [facility] Medical History Wears glasses Scratch Diabetes History of pain when walking Wears partial dentures Alcohol use Anxiety Arthritis Anemia History of diverticulitis Smoker CPAP (continuous positive airway pressure) dependence Shortness of breath on exertion History of stress test Hypertension Limb weakness Difficulty balancing Thyroid disease Knee pain Fatigue Hemorrhoids Home Medications ?Medication ?Instructions ?Recorded ?Last Taken ?Type candesartan 16 mg tablet 32 mg PO DAILY 09/09/15 Unknown History citalopram 20 mg tablet 30 mg PO DAILY 09/09/15 Unknown History cholecalciferol (vitamin D3) 50 2,000 unit PO DAILY 12/18/17 Unknown History mcg (2,000 unit) capsule meloxicam 7.5 mg tablet 7.5 mg PO BID PRN Pain #60 tabs 06/20/23 Unknown Rx amlodipine 2.5 mg tablet 2.5 mg PO QDAY 07/28/24 Unknown History atorvastatin 40 mg tablet 40 mg PO QDAY 07/28/24 Unknown History levothyroxine 125 mcg tablet 125 mcg PO DAILY 09/05/24 Unknown History famotidine 20 mg tablet 20 mg PO DAILY PRN acid reflux 01/07/25 Unknown History hydroxyzine HCl 25 mg tablet 25 mg PO TID PRN PRN itch 01/07/25 Unknown History Allergy/AdvReac Type Severity Reaction Status Date / Time Iodinated Contrast Media Allergy Rash Verified 01/06/25 19:54 (DYEE) Sulfa (Sulfonamide Allergy Rash Verified 01/06/25 19:54 Antibiotics) Family History Brother Diabetes Mother Hypertension Kidney disease Daughter Thyroid disorder Father Cancer eye cancer Surgical History Hx of colonoscopy Hx of release of tendon History of carpal tunnel surgery of left wrist Hx laparoscopic cholecystectomy History of Social History Smoking Status: Light Smoker (<10/day) alcohol intake: current alcohol intake frequency: holidays/special occasions only Alcohol type: beer and wine ROS ROS ED Constitutional Constitutional ED: Denies chills or fever(s) Eyes Eyes: Denies blurry vision or change in vision ENT ENT ED: Denies rhinorrhea or sore throat Cardiovascular Cardiovascular: Denies chest pain or palpitations Respiratory/Chest Respiratory/Chest: Reports cough and dyspnea Gastrointestinal Gastrointestinal: Denies nausea or vomiting Genitourinary Genitourinary ED: Denies dysuria or hematuria Musculoskeletal Musculoskeletal: Reports back pain; Denies neck pain Integumentary Denies abscess or rash Neurologic Neurologic: Denies headache(s) or weakness Allergic/Immunologic Allergic/Immunologic ED: Denies mouth swelling or urticaria EXAM Physical Exam Const Vital Signs: 01/06/25 19:54 01/06/25 23:08 01/07/25 01:00 Temperature 98.9 F Temperature Source Oral Pulse Rate 82 78 70 Respiratory Rate 16 16 15 Blood Pressure 157/82 H 146/104 H Blood Pressure Mean 107 118 Pulse Ox 99 98 98 Oxygen Delivery Method Room Air Room Air Room Air Positive well nourished and well developed General Appearance ED: well developed and NAD HEENT Reports moist mucous membranes Neck supple and no JVD Resp normal respiratory effort and clear to auscultation bilaterally Cardio regular rate and regular rhythm GI non-tender and non-distended Palpation: soft Back/Spine Back/Spine Narrative: There is tenderness over the left lumbar paraspinal muscles and left flank area. There is no midline tenderness. There is no bony crepitance or step-off noted. Range of motion was limited in all motions of the lumbar spine secondary to pain. Strength is 5/5 bilaterally in the lower extremities. There are no sensory deficits noted. General Back: CVA tenderness left Extremity normal to inspection General Extremety ED: Negative for edema General Extremity: Negative for edema Neuro oriented x3, CN's II-XII intact bilaterally and no sensory deficits noted Sensorium / Orientation: alert Motor Exam: strength 5/5 throughout MDM MDM MDM Narrative Medical decision making narrative: Differential diagnosis includes lumbosacral strain, ureteral calculus, pyelonephritis, diverticulitis, viral illness, and urinary tract infection. CBC will be obtained to assess for leukocytosis and anemia. Comprehensive metabolic profile will be obtained to assess for electrolyte abnormality and renal function. Urinalysis will be obtained to assess for urinary tract infection and hematuria. CT scan of the abdomen and pelvis will be obtained to assess for diverticulitis, pyelonephritis, and ureteral calculus. Lab Data Lab results narrative: CBC was reviewed. There is a mild leukocytosis of 14.1. The remainder is within normal limits. Comprehensive metabolic profile was reviewed and was within normal limits. Urinalysis was reviewed. There is no evidence of urinary tract infection or hematuria. Labs: Laboratory Results - last 24 hr 01/06/25 01/06/25 21:38 21:49 WBC 14.1 H RBC 4.11 L Hgb 11.9 L Hct 38.7 MCV 94.2 MCH 29.0 MCHC 30.7 L RDW Std Deviation 54.2 H RDW Coeff of [place] 15.9 H Plt Count 301 MPV 8.8 Immature Gran % (Auto) 0.600 Neut % (Auto) 77.1 H Lymph % (Auto) 14.9 L Early % (Auto) 6.4 Eos % (Auto) 0.6 Baso % (Auto) 0.4 Absolute Neuts (auto) 10.9 H Absolute Lymphs (auto) 2.11 Nucleated RBC % 0 Sodium 137 Potassium 4.8 Chloride Direct 102 Carbon Dioxide 21.4 L Anion Gap 14 BUN 14 Creatinine 0.8 Est GFR (MDRD) Non-Af 78 BUN/Creatinine Ratio 17.0 Glucose 122 H Calcium 9.8 Total Bilirubin 0.50 AST 14 ALT 12 Alkaline Phosphatase 109 H Total Protein 7.3 Albumin 4.2 Globulin 3.1 Albumin/Globulin Ratio 1.3 Urine Color Yellow Urine Clarity Clear Urine pH 6.0 Ur Specific [place] 1.015 Urine Protein 15 H Urine Glucose (UA) Normal Urine Ketones Negative Urine Occult Blood Negative Urine Nitrite Negative Urine Bilirubin Negative Urine Urobilinogen Normal Ur Leukocyte Esterase Negative Urine RBC 0 SEEN Urine WBC 0 SEEN Ur Squamous Epith Cells 0-5 SEEN Urine Bacteria 0 SEEN Urine Mucus 0 SEEN Radiography Diagnostic Testing: Clinical Impression(s) from Imaging Studies Abdomen/Pelvis CT 01/07/25 00:29 IMPRESSION: Acute sigmoid diverticulitis as above with appearance of a locally contained extraluminal collection of air. No free air upper abdomen. No abscess. One or more dose reduction techniques were used (e.g., Automated exposure control, adjustment of the mA and/or kV according to patient size, use of iterative reconstruction technique). Reading Location: [id number] scan of the abdomen pelvis was obtained. There is evidence of sigmoid diverticulitis with a locally contained extraluminal collection of air. There is no free air in the upper abdomen. There is no evidence of any abscess. This was interpreted by the radiologist was also independently reviewed by myself. Management Discussion w/another healthcare provider: Costume Shop Coordinator Treatment and Re-Evaluation :: Smoking cessation was discussed. Patient was given IV fluids and Toradol. Patient was advised of her findings. Patient was given a dose of Cipro and Flagyl here. Case was discussed with Dr. Post. She recommended keeping the patient on clear liquid diet. She agreed with Cipro and Flagyl. She we will admit the patient to her service. Patient understood and was agreeable with the plan. All questions were answered. Discharge Plan Triage Chief Complaint: Flank Pain ED Provider: Geovani Perrin Dx/Rx/DC Orders Clinical Impression: Diverticulitis, Acute left flank pain, Leukocytosis Prescriptions: No Action cholecalciferol (vitamin D3) 2,000 unit capsule 1,000 unit PO DAILY atorvastatin 40 mg tablet 40 mg PO QDAY amlodipine 2.5 mg tablet 2.5 mg PO QDAY citalopram 20 MG tablet 30 mg PO DAILY candesartan 16 MG tablet 32 mg PO DAILY levothyroxine 125 mcg tablet 125 mcg PO DAILY hydroxyzine HCl 25 mg tablet 25 mg PO TID PRN PRN (Reason: itch) famotidine 20 mg tablet 20 mg PO DAILY PRN (Reason: acid reflux) meloxicam 7.5 mg tablet 7.5 mg PO BID PRN (Reason: Pain) Qty: 60 0RF Rx Instructions: further Rx to come from PCP Primary Care Provider: Eder Plaza Referrals: Eder Plaza MD [Primary Care Provider] - Print Language: Faroese Disposition Disposition: Acute Care Hospital [facility]
--- NOTE | 2025-01-07 00:29 | CT_ITS ---
PROCEDURE: ABDOMEN/PELVIS WITHOUT CONT REASON FOR EXAM: Lower back pain for 2 days, left flank pain TECHNIQUE: Abdomen and pelvis CT without intravenous contrast. Coronal and sagittal reformatted images COMPARISON: None. FINDINGS: Noncontrast technique limits evaluation of the abdominal and pelvic viscera. Lung bases: Clear Liver: Unremarkable. Gallbladder: Not identified. Spleen: Unremarkable. Pancreas: Unremarkable. Adrenals: Unremarkable. Kidneys: Unremarkable. No renal stones, hydronephrosis or perinephric stranding. No ureteral or bladder stone identified. Bladder: Unremarkable. No air identified within the bladder. Reproductive Organs: Unremarkable. Bowel: Diverticulosis with area of stranding and inflammatory change at the sigmoid colon anteriorly consistent with diverticulitis. Linear tract extending to the ventral fascia axial 130 and coronal 41 consistent with a local contained extraluminal area of air. No abscess. Adjacent mild stranding and thickening near the anterior dome of the bladder axial 132 and coronal 50 consistent with inflammatory change. No free air or free fluid. No bowel dilation.. Appendix: Normal caliber without secondary signs. Lymph nodes: No suspicious lymph node enlargement. Vasculature: Major vascular structures are unremarkable. Peritoneum / Retroperitoneum: No ascites. No free air. Bones: L1-2 spondylosis/discogenic change. Lower lumbar facet degenerative changes. CT/Abdomen/Pelvis without Cont IMPRESSION: Acute sigmoid diverticulitis as above with appearance of a locally contained ex traluminal collection of air. No free air upper abdomen. No abscess. One or more dose reduction techniques were used (e.g., Automated exposure contr ol, adjustment of the mA and/or kV according to patient size, use of iterative reconstruction technique). Reading Location: [id number]
[2025-01-07] MEDS: Ketorolac 15 MG/ML Vial IV (00:42)
--- NOTE | 2025-01-07 00:45 | ED.RN ---
Patient transported to CT
[2025-01-07] MEDS: Ciprofloxacin 400 MG/200 ML BAG 200 MG IV (01:37)
[2025-01-07] MEDS: metroNIDAZOLE 500 MG/100 ML BAG 100 MG IV (02:09)
[2025-01-07] MEDS: Morphine 4 MG/ML Syringe IV (02:40)
[2025-01-07] MEDS: 0.9% Normal Saline (1000mL) 1,000 ML 120 ML IV (03:17)
[2025-01-07] MEDS: Pantoprazole Sodium 40 MG in 0.9% Normal Saline (100mL MB+) 100 ML 330 MG IV ×2 (03:28→11:25)
[2025-01-07] MEDS: Levothyroxine 125 MCG Tablet PO (06:43)
[2025-01-07] MEDS: oxyCODONE 5 MG Tablet PO (06:43)
[2025-01-07] MEDS: Acetaminophen 325 MG Tablet 650 MG PO (06:43)
[2025-01-07] MEDS: Piperacil/Tazobactam 3.375 GM in 0.9% Normal Saline (50mL MB+) 50 ML IV ×3 (06:44→20:35)
--- NOTE | 2025-01-07 07:15 | PCM.HP.STD ---
HPI - General General Date of Admission: 01/07/25 HPI Narrative NOEL BISHOP, is a 64 F who presents to the ER due to left upper flank pain. Patient states that couple days ago she tossed a bag of clothes and felt like she had a muscle strain and has been taking it easy for the last couple days but has not improved thus came to the ER. CT abdomen pelvis showed sigmoid diverticulitis with a contained extraluminal air suprapubically. Patient denies any suprapubic pain currently or even recently. Patient states she has not a bowel movement for couple of days. But otherwise denies any abdominal pain all of her pain is left upper/back flank. Patient white blood count of 14.1 on admit. Patient was given Cipro Flagyl in the ER for diverticulitis. [facility] Medical History (Updated 01/07/25 @ 03:12 by Roselyn De La Fuente) Myelin oligodendrocyte glycoprotein antibody disorder (MOGAD) Wears glasses Scratch Diabetes History of pain when walking Wears partial dentures Alcohol use Anxiety Arthritis Anemia History of diverticulitis Smoker CPAP (continuous positive airway pressure) dependence Shortness of breath on exertion History of stress test Hypertension Limb weakness Difficulty balancing Thyroid disease Knee pain Fatigue Hemorrhoids Home Medications ?Medication ?Instructions ?Recorded ?Last Taken ?Type candesartan 16 mg tablet 32 mg PO DAILY 09/09/15 Unknown History citalopram 20 mg tablet 30 mg PO DAILY 09/09/15 Unknown History cholecalciferol (vitamin D3) 50 1,000 unit PO DAILY 12/18/17 Unknown History mcg (2,000 unit) capsule meloxicam 7.5 mg tablet 7.5 mg PO BID PRN Pain #60 tabs 06/20/23 Unknown Rx amlodipine 2.5 mg tablet 2.5 mg PO QDAY 07/28/24 Unknown History atorvastatin 40 mg tablet 40 mg PO QDAY 07/28/24 Unknown History levothyroxine 125 mcg tablet 125 mcg PO DAILY 09/05/24 Unknown History famotidine 20 mg tablet 20 mg PO DAILY PRN acid reflux 01/07/25 Unknown History hydroxyzine HCl 25 mg tablet 25 mg PO TID PRN PRN itch 01/07/25 Unknown History Allergy/AdvReac Type Severity Reaction Status Date / Time Iodinated Contrast Media Allergy Rash Verified 01/06/25 19:54 (DYEE) Sulfa (Sulfonamide Allergy Rash Verified 01/06/25 19:54 Antibiotics) Family History Brother Diabetes Mother Hypertension Kidney disease Daughter Thyroid disorder Father Cancer eye cancer Surgical History Hx of colonoscopy Hx of release of tendon History of carpal tunnel surgery of left wrist Hx laparoscopic cholecystectomy History of Social History Smoking Status: Light Smoker (<10/day) alcohol intake: current alcohol intake frequency: holidays/special occasions only Alcohol type: beer and wine ROS Constitutional Constitutional: Denies anorexia Eyes Eyes: Denies change in vision ENT HEENT: Denies dysphagia Cardiovascular Cardiovascular: Denies chest pain or dyspnea Respiratory/Chest Respiratory/Chest: Denies cough Gastrointestinal Gastrointestinal: Reports constipation; Denies abdominal pain, coffee ground emesis, diarrhea, nausea or vomiting Genitourinary Genitourinary: Denies dysuria Musculoskeletal Musculoskeletal: Reports back pain Integumentary Integumentary: Denies jaundice Psychiatric Psychiatric: Denies anxiety or depression Hematologic/Lymphatic Hematologic/Lymphatic: Denies easy bleeding Vital Signs Vital Signs Vital Signs: 01/06/25 19:54 01/06/25 23:08 01/07/25 01:00 Temperature 98.9 F Temperature Source Oral Pulse Rate 82 78 70 Respiratory Rate 16 16 15 Respiratory Effort Respiratory Depth Respiratory Pattern Blood Pressure 157/82 H 146/104 H Blood Pressure Mean 107 118 Blood Pressure Source Blood Pressure Position Blood Pressure Location Pulse Ox 99 98 98 Oxygen Delivery Method Room Air Room Air Room Air 01/07/25 02:43 01/07/25 02:51 01/07/25 03:03 Temperature 98.4 F 98.6 F Temperature Source Oral Pulse Rate 68 63 Respiratory Rate 17 18 Respiratory Effort Normal Non-Labored Respiratory Depth Normal Respiratory Pattern Normal Blood Pressure 140/93 H 117/72 Blood Pressure Mean 108 87 Blood Pressure Source Monitor Blood Pressure Position Semi-Fowlers Blood Pressure Location Right Arm Pulse Ox 97 98 Oxygen Delivery Method Room Air Room Air Weight Weight: 176 lb 9.444 oz Body Mass Index (BMI) 35.6 Physical Exam Narrative Tender to palpation left upper back/flank at lower ribs but not along ribs more medial or posterior. Const alert, oriented x3 and no apparent distress HEENT normocephalic and head/scalp atraumatic Resp normal respiratory effort Cardio regular rate GI soft to palpation and non-tender; Negative for non-distended Palpation: Negative for guarding Extremity no clubbing, cyanosis or edema Skin no rashes or lesions noted Neuro CN's II-XII intact bilaterally Psych mental status grossly normal Results Lab / Micro Data 01/07/25 07:29 01/07/25 07:29 Labs: Laboratory Results - last 24 hr 01/06/25 21:38: WBC 14.1 H, RBC 4.11 L, Hgb 11.9 L, Hct 38.7, MCV 94.2, MCH 29.0, MCHC 30.7 L, RDW Std Deviation 54.2 H, RDW Coeff of [place] 15.9 H, Plt Count 301, MPV 8.8, Immature Gran % (Auto) 0.600, Neut % (Auto) 77.1 H, Lymph % (Auto) 14.9 L, [place] % (Auto) 6.4, Eos % (Auto) 0.6, Baso % (Auto) 0.4, Absolute Neuts (auto) 10.9 H, Absolute Lymphs (auto) 2.11, Nucleated RBC % 0, Sodium 137, Potassium 4.8, Chloride Direct 102, Carbon Dioxide 21.4 L, Anion Gap 14, BUN 14, Creatinine 0.8, Est GFR (MDRD) Non-Af 78, BUN/Creatinine Ratio 17.0, Glucose 122 H, Calcium 9.8, Total Bilirubin 0.50, AST 14, ALT 12, Alkaline Phosphatase 109 H, Total Protein 7.3, Albumin 4.2, Globulin 3.1, Albumin/Globulin Ratio 1.3 01/06/25 21:49: Urine Color Yellow, Urine Clarity Clear, Urine pH 6.0, Ur Specific [place] 1.015, Urine Protein 15 H, Urine Glucose (UA) Normal, Urine Ketones Negative, Urine Occult Blood Negative, Urine Nitrite Negative, Urine Bilirubin Negative, Urine Urobilinogen Normal, Ur Leukocyte Esterase Negative, Urine RBC 0 SEEN, Urine WBC 0 SEEN, Ur Squamous Epith Cells 0-5 SEEN, Urine Bacteria 0 SEEN, Urine Mucus 0 SEEN Imaging Radiology Impression Abdomen/Pelvis CT 01/07/25 00:29 IMPRESSION: Acute sigmoid diverticulitis as above with appearance of a locally contained extraluminal collection of air. No free air upper abdomen. No abscess. One or more dose reduction techniques were used (e.g., Automated exposure control, adjustment of the mA and/or kV according to patient size, use of iterative reconstruction technique). Reading Location: [facility] Assessment & Plan Assessment/Plan (1) Diverticulitis: (2) Acute left flank pain: PLAN: Plan Discussed with patient that CT abdomen pelvis not show any issues in her upper left flank where she is most tender thought that initially it is from moving a bag of clothes?I do believe this is more muscular in the left flank. Patient CT abdomen pelvis showed diverticulitis suprapubic region. Did personally review CT abdomen pelvis no obvious acute changes in the area of the left upper back/flank. Patient denies any pain there or any recent pain there as well. Does state that she has not had a bowel movement for 2 days. Will continue IV antibiotics today also put her on full liquids and likely advance to low fiber later today. And likely DC tomorrow if still doing well. Will plan for follow-up in [address] for [address] abdomen pelvis as an outpatient. Amee Post M.D. Pager: [phone] [facility] [address] [place] [address], [address] [place] [address] Office: [phone] Charges/Coding Visit Charges Inpatient E&M: 31716 Init Hosp L3
[2025-01-07 07:45] LABS: Absolute Lymphocyte Count 1.56 X10^3/uL (0.83-4.51); Absolute Neutrophil Count 5.9 X10^3/uL (2.0-7.7); Basophil# 0.02 X10^3/uL; Basophil% 0.2 % (0-1); Eosinophil# 0.07 X10^3/uL; Eosinophils% 0.9 % (0-5); Hematocrit 32.6 % (37-47); Lymphocyte # 1.56 X10^3/ul (0.83-4.51); Lymphocyte % 19.2 % (19-41); Mean Corp Hgb Conc 30.7 g/dL (32-36); Mean Corpuscular Hgb 28.7 pg (27.0-32.0); Mean Corpuscular Volume 93.7 fL (81-99); Mean Platelet Vol. 8.5 fl (6.2-12.0); Monocyte# 0.57 X10^3/uL; NRBC Flagged by Analyzer 0 % (0-5); Neutrophil # 5.88 X10^3/uL (2.7-7.7); Neutrophil % 72.2 % (47-70); Platelet Count 236 K/mm3 (150-450); RBC Distribution Width SD 54.8 fl (35.1-43.9); Red Blood Count 3.48 M/mm3 (4.2-5.4); White Blood Count 8.1 K/mm3 (4.4-11.0)
[2025-01-07 09:23] LABS: Anion Gap 12 (5-15); BUN 16 mg/dL (4-19); BUN/Creat Ratio 17.9 RATIO (10-20); Calcium 8.8 mg/dL (7.6-11.0); Carbon Dioxide 20.7 mmol/L (22.0-29.0); Chloride 105 mmol/L (96-108); Creatinine, Serum 0.9 mg/dL (0.6-1.0); EST Glomerular Filtration Rate 73 (>60); Glucose 112 mg/dL (70-99); Potassium 4.3 mmol/L (3.3-5.1); Sodium Level 137 mmol/L (133-145)
[2025-01-07] MEDS: 0.9% Saline Lock 10 ML Syringe IV (09:26)
[2025-01-07] MEDS: Ondansetron 4 MG/2 ML Vial IV (09:26)
[2025-01-07] MEDS: Losartan Potassium 100 MG Tablet PO (10:38)
[2025-01-07] MEDS: Citalopram 10 MG Tablet 30 MG PO (10:38)
[2025-01-07] MEDS: amLODIPine 2.5 MG Tablet PO (10:39)
[2025-01-07] MEDS: Docusate Sodium 100 MG Capsule PO ×2 (12:56→20:02)
--- NOTE | 2025-01-07 13:30 | CASEMGMT ---
?RN CM PIPE SMOKING MACHINE OPERATOR CM?to room to meet with patient for initial transition planning/care coordination assessment. RN CM?introduced self and role at [facility]. Pt voices understanding and consents to assessment?at this time. Pt resting in bed in no distress at this time. Pt is A/O at this time and answers all questions appropriately. Care providers, pharmacy, and demographics verified/updated at this time. Strata:?1 PCP: Dr Plaza Specialists: Dr Soto-ortho, Dr Eva Vences, neuro undergraduate intern @ [facility], Dr Landrum-[facility], Dr Villalobos-tower erector @ [facility] Preferred Pharmacy: [facility] Insurance: MMO MCR Prescription Benefit: yes Living Will/HPOA: Pt thinks she has completed these, but is not sure, and states she would like to complete new ones, stating she would like her son to be her agent and her brother to be 1st alternative. Didi BRANCH, made aware. Pt made aware if SW unable to meet w/her while @ [facility], she can complete as OP w/SW. LNOK: Pt has a son, Harry, and has a daughter. Brother, Chuy Living Arrangements: Lives w/daughter, daughter's fiance, and grandson in one-story home w/basement and 5 steps to enter home. She states has issues w/her knees @ baseline and has some difficulty w/stairs. Independent w/ADL's and IADL's. Transportation:?Pt states drives self and states no transportation concerns at this time. Dtr will take her home @ dc. DME: Pt uses a CPAP @ home. Pt states no need for further DME at this time. HHC/SNF: No hx of either. Pt denies needs @ dc. Pt wishes to return home and states has no concerns with going home at time of discharge. Pt states she smokes 3 cigarettes a day and drinks occasionally, stating once every couple of months socially. CM?to follow for any discharge planning/needs. Pt voices no further concerns/needs at this time. Advised pt to ask for CM?if any further questions/concerns/needs arise. Voices understanding. PLAN: Home Melody ZIMMERMAN RN, CM
[2025-01-07] MEDS: Meloxicam 7.5 MG Tablet PO (16:36)
[2025-01-07] MEDS: traMADol 50 MG Tablet PO (18:06)
[2025-01-07] MEDS: Atorvastatin Calcium 40 MG Tablet PO (20:01)
[2025-01-07] MEDS: diazePAM 2 MG Tablet PO (20:02)
[2025-01-07] MEDS: 0.9% Normal Saline (100mL Bag) 100 ML 15 ML IV (20:36)
[2025-01-08 02:00] VITALS: BP 123/55; PULSE 68; RESP 16; TEMP 36.4; O2SAT 95
[2025-01-08] MEDS: Piperacil/Tazobactam 3.375 GM in 0.9% Normal Saline (50mL MB+) 50 ML IV ×2 (05:07→13:39)
[2025-01-08] MEDS: Levothyroxine 125 MCG Tablet PO (05:09)
[2025-01-08] MEDS: traMADol 50 MG Tablet PO (06:01)
[2025-01-08 08:00] VITALS: RESP 17; O2SAT 96
--- NOTE | 2025-01-08 08:28 | PCM.PN.SRG ---
Subjective Subjective Patient evaluated resting comfortably in bed. She notes back pain has improved. She notes abdominal pressure from constipation. She notes not having a bowel movement for 2 days now. She was switched to Ultram overnight, which has helped with her back pain along with kpad. She denies any nausea, vomiting, fever. She has passed minimal amount of flatus. She denies any bowel movement. Objective Data Objective Data Vital Signs: Vital Signs Temp Pulse Resp BP Pulse Ox O2 Del Method 97.5 F L 68 16 123/55 H 95 Room Air 01/08/25 02:00 01/08/25 02:00 01/08/25 02:00 01/08/25 02:00 01/08/25 02:00 01/08/25 02:00 Oxygen Delivery Method Room Air Weight: 176 lb 9.444 oz Body Mass Index (BMI) 35.6 Intake & Output: Intake and Output for Last 24 Hours 01/06/25 01/07/25 01/08/25 23:59 23:59 23:59 Intake Total 2059 390 / 390 Balance 2059 390 / 390 Lab / Micro Data 01/07/25 07:29 01/07/25 07:29 Labs: Laboratory Results - last 24 hr 01/07/25 07:29: Sodium 137, Potassium 4.3, Chloride Direct 105, Carbon Dioxide 20.7 L, Anion Gap 12, BUN 16, Creatinine 0.9, Estim Creat Clear Calc 57.60, Est GFR (MDRD) Non-Af 73, BUN/Creatinine Ratio 17.9, Glucose 112 H, Calcium 8.8 Physical Exam GI GI Narrative: abdomen- soft, upper abdominal pressure with palpation. Slightly distended. Assessment & Plan Assessment/Plan (1) Diverticulitis: (2) Acute left flank pain: PLAN: Plan I am following this patient in conjunction with Dr. Post. She will independently evaluate this patient. Miralax ordered to assist with bowel movement Likely discharge to home later today Will discharge home on oral Augmentin and Ultram for her back pain She will follow-up with Dr. Post in 1 week and her PCP in 1 week to continue to follow patient for acute back pain We will continue to monitor this patient Charges/Coding Visit Charges Inpatient E&M: 22173 Subs Hosp L1
[2025-01-08 08:39] VITALS: BP 101/84; PULSE 67; RESP 17; TEMP 36.7; O2SAT 96
[2025-01-08] MEDS: Polyethylene Glycol 3350 17 GM PACKET PO (08:43)
[2025-01-08] MEDS: Docusate Sodium 100 MG Capsule PO (10:12)
[2025-01-08] MEDS: Losartan Potassium 100 MG Tablet PO (10:12)
[2025-01-08] MEDS: amLODIPine 2.5 MG Tablet PO (10:12)
[2025-01-08] MEDS: Citalopram 10 MG Tablet 30 MG PO (10:13)
[2025-01-08] MEDS: Pantoprazole Sodium 40 MG in 0.9% Normal Saline (100mL MB+) 100 ML 330 MG IV (10:34)
[2025-01-08] MEDS: 0.9% Saline Lock 10 ML Syringe IV (10:34)
--- NOTE | 2025-01-08 14:09 | PCM.DC ---
Discharge Instructions Diet Discharge Diet: - (low fiber diet) DC O2, CPAP, BIPAP needs Home O2 Discharge instructions: No Dressing / Incision Discharge Activity: Return to Normal Activity Follow Up Care Please Follow Up With: Amee Post MD When: Please contact our office at [phone], option #2, to schedule a 1 week follow-up appointment with Dr. Post for diverticulitis Test Results: Test results from this visit will be discussed in further detail at your follow-up appointment, if applicable. Discharge Plan Admission Admit Date/Time: 01/07/25 02:20 Primary Reason for Your Visit: Acute perforated sigmoid diverticulitis Attending Provider: Amee Post Primary Care Provider: Eder Plaza Instructions Additional Instructions / Restrictions: What are low-fiber foods? If your doctor tells you to follow a low-fiber diet, here are low-fiber foods you can eat and higher-fiber foods you should avoid. Remember to always choose foods that you would normally eat. Do not try any foods that caused you discomfort or allergic reactions in the past. If you are on a ?low-residue diet,? your food choices are even more restricted than those listed below. Talk with your cancer care team or dietitian if you have questions about certain foods or amounts. Meat, fish, poultry, and protein Eat: Tender cuts of meat Ground meat Tofu Fish and shellfish Smooth peanut butter Eggs Bake, broil, or poach meats, and use mild seasonings. Try preparing meats as stews, roasts, meatloaves, casseroles, sandwiches, and soups using ingredients on the approved lists. Scramble, poach, or boil eggs; or make omelets, souffl?s, custard, puddings, and casseroles, using ingredients noted below. You might want to ask your doctor, nurse, or dietitian about other foods may be OK for you to eat, and find out when you can go back to your normal diet. Avoid: All beans, nuts, peas, lentils, and legumes Processed meats, hot dogs, sausage, and cold cuts Tough meats with gristle Dairy: Milk and cheese Eat: Only in small to medium amounts and only if they don?t cause problems for you Milk, chocolate milk, buttermilk, and milk drinks Yogurt without seeds or granola Sour cream Cheese Cottage cheese Custard or pudding Ice cream or frozen desserts (without nuts) Cream sauces, soups, and casseroles You can use these items in desserts, snacks, or breads. Bread, cereals, and grains Eat: White breads, waffles, [place] toast, plain white rolls, or white bread toast Pretzels Plain pasta or noodles White rice Crackers, zwieback, kishan, and matzoh (no cracked wheat or whole grains) Cereals without whole grains, added fiber, seeds, raisins, or other dried fruit Use white flour for baking and making sauces. Grains, such as white rice, Cream of Wheat, or grits, should be well-cooked. Include the above grains in casseroles, dumplings, souffl?s, cheese strata, kugels, and pudding. Avoid any food that contains: Brown or wild rice Whole grains, cracked grains, or whole wheat products Kasha (buckwheat) Cornbread or cornmeal Duke crackers Bran Wheat germ Nuts Granola Coconut Dried fruit Seeds Vegetables and potatoes Eat: Tender, well-cooked fresh or canned vegetables without seeds, stems, or skins Cooked sweet or white potatoes without skins Strained vegetable juices without pulp or spices You can also eat these with cream sauces, or in soups, souffl?s, kugels, and casseroles. Avoid: All raw or steamed vegetables All types of beans Potatoes with skin Peas [place] Cabbage, broccoli, cauliflower, [place] sprouts, and greens Sauerkraut Onions Fruits and desserts Eat: Soft canned or cooked fruit without seeds or skins (small amounts) Small amounts of well-ripened banana Strained or clear juices Small amounts of soft cantaloupe or honeydew melon Cookies and other desserts without whole grains, dried fruit, berries, nuts, or coconut Sherbet and popsicles Serving suggestions include gelatins, milk shakes, frozen desserts, puddings, tapioca, cakes, and sauces. Avoid: All raw or dried fruits Berries Prune juice, prunes, and raisins Other foods Eat: Mayonnaise and mild salad dressings Margarine, butter, cream, and oils in small amounts Plain gravies Plain bouillon and broth Ketchup and mild mustard Spices, cooked herbs, and salt Sugar, honey, and syrup Clear jellies Hard candy and marshmallows Plain chocolate Avoid: Marmalade Pickles, olives, relish, and horseradish Popcorn Potato chips Liquids Keep in mind that low-fiber foods cause fewer bowel movements and smaller stools. You may need to drink extra fluids to help prevent constipation while you are on a low-fiber diet. Drink plenty of water unless your doctor tells you otherwise, and use juices and milk as noted above. Follow-up in [address] Post and 1 week with your PCP for follow-up. Discharge Orders/Prescriptions Prescriptions: New tramadol 50 mg Tablet 50 mg PO Q6H PRN PRN (Reason: Pain Score 4-10) 2 Days Qty: 6 0RF amoxicillin-pot clavulanate 875-125 mg Tablet 1 tab PO BIDCM 13 Days Qty: 26 0RF Continued cholecalciferol (vitamin D3) 2,000 unit capsule 1,000 unit PO DAILY atorvastatin 40 mg tablet 40 mg PO QDAY amlodipine 2.5 mg tablet 2.5 mg PO QDAY citalopram 20 MG tablet 30 mg PO DAILY candesartan 16 MG tablet 32 mg PO DAILY levothyroxine 125 mcg tablet 125 mcg PO DAILY hydroxyzine HCl 25 mg tablet 25 mg PO TID PRN PRN (Reason: itch) famotidine 20 mg tablet 20 mg PO DAILY PRN (Reason: acid reflux) meloxicam 7.5 mg tablet 7.5 mg PO BID PRN (Reason: Pain) Qty: 60 0RF Rx Instructions: further Rx to come from PCP Referrals / Follow Up: Amee Post MD [Med Staff - Active Staff] - 01/15/25 Eder Plaza MD [Primary Care Provider] - 01/15/25 Disposition Disposition (needs filled in before D/C Order can be placed): Home, Self Care
[2025-01-08 14:55] VITALS: BP 103/53; PULSE 66; RESP 18; TEMP 36.7; O2SAT 95
--- NOTE | 2025-01-08 15:06 | CHAPLAIN ---
Type of Pastoral Visit _x__ Initial Visit ___ Follow-up Visit ___ On-call Visit ___ General Patient Visit ___ Spiritual Assessment ___ Family Conference ___ Bereavement ___ Rapid Response ___ Code Blue ___ Other (describe below) Pastoral Care Referral From _x__ Patient ___ Family ___ Nurse ___ Physician ___ Blast Furnace Keeper ___ Prune Washer ___ Other (describe below) Sacrament/Intervention _x__ Active listening ___ Anointing ___ Gnosticist ___ Bereavement ___ Communion _x__ Taylor exploration ___ _x__ Life review _x__ Prayer ___ Reconciliation ___ Sacrament of Sick ___ Supportive presence ___ Wedding ___ Other (describe below) Pastoral Comments patient presents with a positive outlook and an expectation to be going home soon; pt talks about her activities with volunteerism at the [employer]; pt has been a single parent/grandparent and is used to being independent and active'; pt welcomes a prayer and someone to talk with about her life
--- NOTE | 2025-01-08 16:37 | PHA.DC.MR.R ---
Pharmacy [place] Med Reconciliation Pharmacy Service has performed discharge medication reconciliation for this patient. Medication education papers prepared, patient discharged when counseling was attempted. Medications reviewed. The patient's discharge medication list was reviewed for discrepancies and discrepancies were resolved. Medications at Discharge Home Medications candesartan 16 mg tablet 32 mg PO DAILY 09/09/15 citalopram 20 mg tablet 30 mg PO DAILY 09/09/15 cholecalciferol (vitamin D3) 50 mcg (2,000 unit) capsule 1,000 unit PO DAILY 12/18/17 meloxicam 7.5 mg tablet 7.5 mg PO BID PRN Pain #60 tabs 06/20/23 amlodipine 2.5 mg tablet 2.5 mg PO QDAY 07/28/24 atorvastatin 40 mg tablet 40 mg PO QDAY 07/28/24 levothyroxine 125 mcg tablet 125 mcg PO DAILY 09/05/24 famotidine 20 mg tablet 20 mg PO DAILY PRN acid reflux 01/07/25 hydroxyzine HCl 25 mg tablet 25 mg PO TID PRN PRN itch 01/07/25 amoxicillin 875 mg-potassium clavulanate 125 mg tablet 1 tab PO BIDCM 13 days #26 tabs 01/08/25 tramadol 50 mg tablet 50 mg PO Q6H PRN PRN Pain Score 4-10 2 days #6 tabs 01/08/25
== END 2025-01-08 16:20 | disposition home or self-care (01) | DRG 392 ==
LOC: ED 01-07 02:20 → MS3 01-07 02:30
PROVIDERS: Admitting Provider Surgery; Emergency Provider Emergency Medicine; PCP Internal Medicine; Visit Provider Surgery
DX: K57.32 Diverticulitis of large intestine without perforation or abscess without bleeding (principal); E11.9 Type 2 diabetes mellitus without complications; I10 Essential (primary) hypertension; F17.200 Nicotine dependence, unspecified, uncomplicated; Z79.899 Other long term (current) drug therapy
CPT/HCPCS: 36415; 74176; 80048; 80053; 81001; 85025; 94668; 99284; 99406; A4216; J0744; J2405

== ENCOUNTER → 2025-02-18 | Outpatient (CLI) | payer MEDICARE, SELFPAY ==
--- NOTE | 2025-02-18 14:53 | CT_ITS ---
PROCEDURE: ABDOMEN/PELVIS WITHOUT CONT 02/18/2025 REASON FOR EXAM: DIVERTICULITIS TECHNIQUE: Abdomen and pelvis CT without intravenous contrast. Noncontrast technique limits evaluation of the abdominal and pelvic viscera. Coronal and Sagittal reconstruction series were provided. One or more dose reduction techniques were used (e.g., Automated exposure control, adjustment of the mA and/or kV according to patient size, use of iterative reconstruction technique). PATIENT PREPARATION: Per protocol ORAL CONTRAST TYPE: None. AMOUNT: mL RADIATION DOSE SUMMARY: CTDlvol: 17.44 mGy DLP: 805.84 mGycm One or more dose reduction techniques were used (e.g., Automated exposure control, adjustment of the mA and/or kV according to patient size, use of iterative reconstruction technique). COMPARISON: 01/07/2025 FINDINGS: Note that evaluation of the abdominopelvic viscera, vasculature, and remaining soft tissues is limited in the absence of IV contrast. Lung bases: Mild atelectasis/scarring. Liver: Unremarkable. Spleen: Unremarkable. Gallbladder: Gallbladder not identified, likely surgically absent however there are no visible surgical clips. Pancreas: Unremarkable. Adrenals: Unremarkable. Kidneys: Unremarkable. Bowel: Diverticulosis. Slightly decreased quantity of extraluminal gas, otherwise essentially unchanged soft tissue thickening and inflammatory stranding along the anterior aspect of the proximal sigmoid, contacting the anterior abdominal wall and anterior bladder dome with considerable soft tissue thickening/phlegmon present in the extraperitoneal space of Retzius, suboptimally evaluated in the absence of IV contrast. Similar mild sigmoid wall thickening versus underdistention.. Normal caliber appendix. Lymph nodes: Unremarkable. Vasculature: Mild/moderate atherosclerosis. Peritoneum: As above.. Bladder: As above. Otherwise underdistended and suboptimally evaluated.. Reproductive Organs: Unremarkable. Body Wall: As above. Fat containing umbilical hernia. Bones: Multilevel spondylosis.. CT/Abdomen/Pelvis without Cont IMPRESSION: 1. Essentially unchanged appearance of the sigmoid colon with likely sequelae o f diverticulitis including findings concerning for a tiny contained perforation with surrounding phlegmon/abscess, suboptimally de lineated in the absence of IV contrast. There is close association with the anterior bladder dome and deep surface of the anteri or abdominal wall, placing the patient at risk for fistulization although there is no definite evidence of this currently. Recomm end clinical follow-up. A follow-up exam after appropriate therapy with IV contrast for improved delineation would be helpful, if clinically feasible. 2. Persistent sigmoid wall thickening adjacent to the above could be inflammato ry/reactive although clinical follow-up is certainly warranted to exclude an underlying sigmoid neoplasm particularly give n persistence of the above findings from 01/07/2025. 3. Additional description as above. Reading Location: [facility]
== END | disposition home or self-care (01) ==
LOC: CT 14:44
PROVIDERS: PCP Internal Medicine; Referring Provider Surgery; Visit Provider Surgery
DX: K57.92 Diverticulitis of intestine, part unspecified, without perforation or abscess without bleeding (principal)
CPT/HCPCS: 74176

== ENCOUNTER 2025-04-13 07:55 | Day surgery (SDC) | payer MEDICARE, SELFPAY ==
[2025-04-13] VITALS (8 sets, daily range): BP systolic 95–143; BP diastolic 48–69; PULSE 56–73; RESP 16–20; TEMP 36.1–37.1; O2SAT 97–100; BMI 36.0
--- NOTE | 2025-04-13 07:46 | H&P.OPEN ---
HPI - General General Date of Service: 04/13/25 HPI Narrative NOEL BISHOP, is a 64 F who presents for a colonoscopy due to history of diverticulitis. Patient denies any abdominal pain currently. Office visit 03/11/2025 HPI HPI: Six 4-year-old female presents to discuss repeat CAT scan status post episode of diverticulitis with contained air. Patient is never had any suprapubic or left lower quadrant pain her main complaint in the hospital was left flank pain which patient did get put on some muscle relaxers for it and that has resolved. Patient did complete a course of Augmentin after her hospitalization in January. Patient states she has been doing well did have a low fiber diet for several weeks tolerating diet having bowel function. Patient's repeat CAT scan was done 02/18?reports today is it is basically unchanged concerning for a tiny contained perforation with surrounding phlegmon/abscess. Patient's last colonoscopy was 01/30/[address] Zamora showed diverticulosis no polyps were seen recommend follow-up in 10 years. [facility] Medical History (Updated 04/13/25 @ 07:[address] Amee Post MD) Sleep apnea Myelin oligodendrocyte glycoprotein antibody disorder (MOGAD) Wears glasses Scratch Diabetes History of pain when walking Wears partial dentures Alcohol use Anxiety Arthritis Anemia History of diverticulitis Smoker CPAP (continuous positive airway pressure) dependence Shortness of breath on exertion History of stress test Hypertension Limb weakness Difficulty balancing Thyroid disease Knee pain Fatigue Hemorrhoids Home Medications ?Medication ?Instructions ?Recorded ?Last Taken ?Type candesartan 16 mg tablet 32 mg PO DAILY 09/09/15 04/13/25 07:00 History citalopram 20 mg tablet 30 mg PO DAILY 09/09/15 Unknown History cholecalciferol (vitamin D3) 50 1,000 unit PO DAILY 12/18/17 Unknown History mcg (2,000 unit) capsule meloxicam 7.5 mg tablet 7.5 mg PO BID PRN Pain #60 tabs 06/20/23 Unknown Rx amlodipine 2.5 mg tablet 2.5 mg PO QDAY 07/28/24 04/13/25 07:00 History atorvastatin 40 mg tablet 40 mg PO QDAY 07/28/24 Unknown History famotidine 20 mg tablet 20 mg PO DAILY acid reflux 01/07/25 Unknown History levothyroxine 112 mcg capsule 112 mcg PO QDAY 03/11/25 Unknown History Allergy/AdvReac Type Severity Reaction Status Date / Time Iodinated Contrast Media Allergy Rash Verified 04/13/25 08:15 (DYEE) Sulfa (Sulfonamide Allergy Rash Verified 04/13/25 08:15 Antibiotics) Family History Brother Diabetes Mother Hypertension Kidney disease Daughter Thyroid disorder Father Cancer eye cancer Surgical History Hx of colonoscopy Hx of release of tendon History of carpal tunnel surgery of left wrist Hx laparoscopic cholecystectomy History of Social History Smoking Status: Light Smoker (<10/day) alcohol intake: current alcohol intake frequency: holidays/special occasions only Alcohol type: beer and wine Past Medical/Surgical History Planned Operation Planned Operative Procedure(s): COLONOSCOPY Previous Hospitalizations/Surgeries HX Hospitalizations: No Any Problems With Anesthesia: No You/Your Family Experience Fever (Hyperthermia) With Anes: No Cholinesterase deficiency: No Cardiovascular Hx Hypertension: Yes Respiratory Hx Chronic Obstructive Pulmonary Disease (COPD): No Hx Asthma: No Hx Emphysema: No Hx Sleep Apnea: Yes CPAP: Yes BIPAP: No Hx Respiratory Tract Infection/Cold (presently): No Result (for STOP score): Positive Smoking Status: Light Smoker (<10/day) Neurological Does patient have nerve stimulator: No Reproduction : No Miscellaneous Recent Exposure to Contagious Disease: No Allergies Iodinated Contrast Media (DYEE) Allergy (Verified 04/13/25 08:15) Rash Sulfa (Sulfonamide Antibiotics) Allergy (Verified 04/13/25 08:15) Rash Discharge Is Pt Admitted From a [facility], or a [facility]: No After D/C, Where Do you Plan to Go: Return Home Physical Exam Const alert, oriented x3 and no apparent distress HEENT normocephalic and head/scalp atraumatic Resp normal respiratory effort Cardio regular rate GI soft to palpation and non-tender; Negative for non-distended Palpation: Negative for guarding Extremity no clubbing, cyanosis or edema Skin no rashes or lesions noted Neuro CN's II-XII intact bilaterally Psych mental status grossly normal Assessment & Plan Assessment/Plan (1) Hx of diverticulitis of colon: Surgery Risks - Colonoscopy I discussed with the patient the risks of the procedure: Yes Risks Include but are not Limited To: Risks include but are not limited to: Bleeding, perforation requiring further surgery, inability to complete colonoscopy requiring barium enema.
[2025-04-13] MEDS: Lactated Ringers 1,000 ML 15 ML IV (08:34)
--- NOTE | 2025-04-13 08:45 | PCM.PRE.AN2 ---
ASA Classification* ASA Classification ASA Classification: 2 (HTN, HLD, Hypothyroidism ) Assessment & Plan Anesthesia* Anesthesia Assessment Anesthesia Assessment: Discussed sedation and/or anesthesia options, risks, benefits, and alternatives with patient/parents/legal guardian/POA. Questions invited. The patient/parents/legal guardian/POA seems to understand and agrees to proceed with anesthesia plan. Reviewed the physical assessment, medical history, allergy history and patient home medications list prior to surgery/procedure/anesthetic and documented any changes. Performed airway and anesthesia risk assessments. Anesthesia Type Anesthesia Type: General History Source History Obtained from:: Patient and Chart Anesthesia Focused Assessment* Temperature: 97.0 F Pulse Rate: 73 Blood Pressure: 143/69 Respiratory Rate: 16 Pulse Ox: 99 Oxygen Delivery Method: Room Air Airway Assessment Mouth opens: >3 cm Mallampati Score: III Teeth Condition: Intact Neck Range of motion (ROM): Full ROM Focused Labs Anesthesia Preop lab: CBC WBC 8.1 K/mm3 (4.4-11.0) 01/07/25 07:01/07/25 RBC 3.48 M/mm3 (4.2-5.4) L 01/07/25 07:01/07/25 Hgb 10.0 g/dL (12.0-15.0) L 01/07/25 07:01/07/25 Hct 32.6 % (37-47) L 01/07/25 07:01/07/25 Plt Count 236 K/mm3 (150-450) 01/07/25 07:29 01/07/25 CHEMISTRY Potassium 4.3 mmol/L (3.3-5.1) 01/07/25 07:01/07/25 Sodium 137 mmol/L (133-145) 01/07/25 07:01/07/25 BUN 16 mg/dL (4-19) 01/07/25 07:01/07/25 Creatinine 0.9 mg/dL (0.6-1.0) 01/07/25 07:01/07/25 Glucose 112 mg/dL (70-99) H 01/07/25 07:01/07/25 TSH 0.89 uIU/mL (0.358-3.74) 01/31/22 08:54 01/31/22 COAG Pre-Assessment Diagnosis/Proposed Procedure Planned Operative Procedure(s): COLONOSCOPY Anesthesia History 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 When Was Last Pacemaker Check QUESTION #4 FULL TEXT: You/Your Family Experience fever (hyperthermia) with Anesthesia Last Oral Intake Last Oral intake: Last Oral Intake NPO since 21:00 04/13/25 08:17 Meds taken in AM with sips of Yes 04/13/25 08:17 water? Meds patient instructed to take am of surgery PONV PONV - business change manager: PONV - business change manager Female Yes 04/08/25 12:14 HX of Motion Sickness No 04/08/25 12:14 HX of N/V After Surgery No 04/08/25 12:14 Non-Smoker No 04/08/25 12:14 Duration of Surgery greater No 04/08/25 12:14 than 60 minutes Number of Risk Factors 1 04/08/25 12:14 PONV Score Low Risk 04/08/25 12:14 Height & Weight Height & Weight: Anesthesia: Height & Weight Height 4 ft 11 in 04/13/25 08:17 Weight: 81 kg 04/13/25 08:17 Body Mass Index (BMI) 36.0 04/13/25 08:17 Respiratory Assessment Respiratory Assessment - business change manager: Respiratory Tract Infection Hx - business change manager Hx Respiratory Tract Infection No 04/13/25 07:47 STOP Sleep Apnea STOP Sleep Apnea - business change manager: STOP Sleep Apnea - business change manager Hx Hypertension Yes 04/13/25 07:47 Hx Sleep Apnea Yes 04/13/25 07:47 CPAP Yes 04/13/25 07:47 BIPAP No 04/13/25 07:47 Do you snore loudly (louder than talking or can be heard Do you often feel tired/ fatigued/ sleepy during daytime? Has anyone observed you stop breathing during sleep? STOP Results Positive 04/13/25 07:47 QUESTION #5 FULL TEXT : Do you snore loudly (louder than talking or can be heard through closed doors)? Tobacco Use History Tobacco Use History - business change manager: Tobacco Use History - business change manager Tobacco Use Smoking Status Light Smoker (<10/day) 04/13/25 07:47 Hx Tobacco Use Yes 04/08/25 12:14 Years Smoking Packs Smoked per Day Smoking Cessation Date was within the last 15 years Hx Smoking Cessation Date Hx Smoking Cessation Counseling Hematologic Medial History Hematologic Hx - business change manager: Hematologic Medical Hx - mixer blender Hx of Blood Transfusion No 04/08/25 12:14 Hx of Transfusion in last 3 No 04/08/25 12:14 Months Date of Last Transfusion (if within last 3 months) Ever experience any problems No 04/08/25 12:14 with transfusion(s)? Specify any problems Hx of Preganancy in last 3 No 04/08/25 12:14 Months Nurse Filling Out Transfusion VCHRISTIN 04/08/25 12:14 & Questions: Date: 04/08/25 04/08/25 12:14 Time: 12:15 04/08/25 12:14 Patient unable to answer at this time (ie. confused, unrespo /Reproduction History /Reproductive History - business change manager: /Reproductive Hx- business change manager Hx Now No 04/13/25 07:47 Gestational Age (in weeks): EDC: Hx Hx Para Hx Section SAB No 04/08/25 12:14 Active Medications Active Medications: Current Medications Generic Name Dose Route Start Last Admin Trade Name Freq PRN Reason Stop Dose Admin Lactated Ringer's 1,000 mls @ 15 mls/hr 04/13/25 08:15 04/13/25 08:34 IV 15 mls/hr .Q48H DIEGO Administration PFSH Medical History (Updated 04/13/25 @ 07:[address] Amee Post MD) Sleep apnea Myelin oligodendrocyte glycoprotein antibody disorder (MOGAD) Wears glasses Scratch Diabetes History of pain when walking Wears partial dentures Alcohol use Anxiety Arthritis Anemia History of diverticulitis Smoker CPAP (continuous positive airway pressure) dependence Shortness of breath on exertion History of stress test Hypertension Limb weakness Difficulty balancing Thyroid disease Knee pain Fatigue Hemorrhoids Home Medications ?Medication ?Instructions ?Recorded ?Last Taken ?Type candesartan 16 mg tablet 32 mg PO DAILY 09/09/15 04/13/25 07:00 History citalopram 20 mg tablet 30 mg PO DAILY 09/09/15 Unknown History cholecalciferol (vitamin D3) 50 1,000 unit PO DAILY 12/18/17 Unknown History mcg (2,000 unit) capsule meloxicam 7.5 mg tablet 7.5 mg PO BID PRN Pain #60 tabs 06/20/23 Unknown Rx amlodipine 2.5 mg tablet 2.5 mg PO QDAY 07/28/24 04/13/25 07:00 History atorvastatin 40 mg tablet 40 mg PO QDAY 07/28/24 Unknown History famotidine 20 mg tablet 20 mg PO DAILY acid reflux 01/07/25 Unknown History levothyroxine 112 mcg capsule 112 mcg PO QDAY 03/11/25 Unknown History Allergy/AdvReac Type Severity Reaction Status Date / Time Iodinated Contrast Media Allergy Rash Verified 04/13/25 08:15 (DYEE) Sulfa (Sulfonamide Allergy Rash Verified 04/13/25 08:15 Antibiotics) Family History Brother Diabetes Mother Hypertension Kidney disease Daughter Thyroid disorder Father Cancer eye cancer Surgical History Hx of colonoscopy Hx of release of tendon History of carpal tunnel surgery of left wrist Hx laparoscopic cholecystectomy History of Social History Smoking Status: Light Smoker (<10/day) alcohol intake: current alcohol intake frequency: holidays/special occasions only Alcohol type: beer and wine Review of Systems (Anesthesia) ROS Narrative System reviewed and no additional complaints, except as documented. Physical Exam Const alert and oriented x3 Nutritional Appearance: obese Resp normal respiratory effort, normal air movement and clear to auscultation bilaterally Cardio regular rate, regular rhythm, no murmurs and diaphoretic
--- NOTE | 2025-04-13 10:41 | OP.CCLET_ITS ---
04/13/2025 Eder Plaza [address] [place] [address] Re : Colonoscopy procedure for Tamara Benz Dear Dr. Plaza This procedure was performed on Sunday, April 13, 2025. My impressions and recommendations are as follows: Impressions : - Diverticulosis in the sigmoid colon. - The examination was otherwise normal. - No specimens collected. Recommendations : - Discharge patient to home. - Resume previous diet. - Continue present medications. - Repeat colonoscopy in 10 years for screening purposes. My findings are described in the full procedure note, which is enclosed. If I can be of further assistance, please feel free to contact me at Doctor phone number(s): , Work: . Sincerely, MD Amee Walker MD 04/13/2025 10:40:38 AM This report has been signed electronically.
--- NOTE | 2025-04-13 10:41 | OP.COLON_ITS ---
Patient Name: Tamara Benz Procedure Date: 04/13/2025 10:18 AM Date of : 1960 Age: 64 Procedure: Colonoscopy Indications: Abnormal CT of the GI tract, Follow-up of diverticulitis Providers: Amee Post MD Referring MD: Eder Plaza Medicines: Monitored Anesthesia Care Patient Profile: Last Colonoscopy: 1 year ago. Complications: No immediate complications. Procedure: Pre-Anesthesia Assessment: - Prior to the procedure, a History and Physical was performed, and patient medications and allergies were reviewed. The patient's tolerance of previous anesthesia was also reviewed. The risks and benefits of the procedure and the sedation options and risks were discussed with the patient. All questions were answered, and informed consent was obtained. Prior Anticoagulants: The patient has taken no anticoagulant or antiplatelet agents. ASA Grade Assessment: Per anesthesia. After reviewing the risks and benefits, the patient was deemed in satisfactory condition to undergo the procedure. After I obtained informed consent, the scope was passed under direct vision. Throughout the procedure, the patient's blood pressure, pulse, and oxygen saturations were monitored continuously. The colonoscope was introduced through the anus and advanced to the cecum, identified by the appendiceal orifice, ileocecal valve and palpation. The colonoscopy was performed without difficulty. The patient tolerated the procedure well. The quality of the bowel preparation was good. Scope In: 10:20:09 AM Scope Withdrawal Time 0 hours 9 minutes 2 seconds Scope Out: 10:34:12 AM Total Procedure Duration Time 0 hours 14 minutes 3 seconds Findings: Multiple small-mouthed diverticula were found in the sigmoid colon. The exam was otherwise without abnormality. The perianal and digital rectal examinations were normal. Impression: - Diverticulosis in the sigmoid colon. - The examination was otherwise normal. - No specimens collected. Recommendation: - Discharge patient to home. - Resume previous diet. - Continue present medications. - Repeat colonoscopy in 10 years for screening purposes. Procedure Code(s): --- Professional --- 63182, Colonoscopy, flexible; diagnostic, including collection of specimen(s) by brushing or washing, when performed (separate procedure) Diagnosis Code(s): --- Professional --- K57.32, Diverticulitis of large intestine without perforation or abscess without bleeding K57.30, Diverticulosis of large intestine without perforation or abscess without bleeding R93.3, Abnormal findings on diagnostic imaging of other parts of digestive tract CPT copyright 2021 [employer]. All rights reserved. The codes documented in this report are preliminary and upon sodium methylate operator review may be revised to meet current compliance requirements. MD Amee Walker MD 04/13/2025 10:40:38 AM This report has been signed electronically. Number of Addenda: 0 Note Initiated On: 04/13/2025 10:18 AM
--- NOTE | 2025-04-13 10:42 | PCM.POST.ANE ---
Anesthesia: Postop Eval I Current Vital Signs Temperature: 97.4 F Pulse Rate: 56 Blood Pressure: 95/48 Respiratory Rate: 20 Pulse Ox: 97 Oxygen Delivery Method: Room Air Assessment Airway patent: Yes Spontaneous unlabored respirations: Yes Mental status: Awake nausea: No Vomiting: No Anesthesia Complication: No Fluid Hydration Crystalloid volume administer (ml): 500 Total IV fluid infused: 500 Progress Note Anesthesia document: Postop Eval 1 completed: Yes
--- NOTE | 2025-04-13 12:54 | POSTOPAN2_ITS ---
Anesthesia Postop Eval I Sum Postop Eval Completion status Anesthesia document: Postop Eval 1 completed: Yes Anesthesia Postop Eval I Summary Anesthesia Postop Eval I Summary: Anesthesia Postop Eval I: Assessment Summary Airway patent Yes 04/13/25 10:43 CRYPTOLOGIC SUPPORT SPECIALIST.[email or web address] Spontaneous unlabored Yes 04/13/25 10:43 CRYPTOLOGIC SUPPORT SPECIALIST.JDEF respirations Mental status Awake 04/13/25 10:43 CRYPTOLOGIC SUPPORT SPECIALIST.JDEF nausea No 04/13/25 10:43 CRYPTOLOGIC SUPPORT SPECIALIST.JDEF Vomiting No 04/13/25 10:43 CRYPTOLOGIC SUPPORT SPECIALIST.JDEF Anesthesia Postop Eval I: Fluid Summary Crystalloid volume administer 500 04/13/25 10:43 CRYPTOLOGIC SUPPORT SPECIALIST.JDEF (ml) Colloids volume administered ( ml) Blood Product volume administered (ml) Total IV fluid infused 500 04/13/25 10:43 CRYPTOLOGIC SUPPORT SPECIALIST.JDEF Anesthesia Postop Eval I: Summary Notes Anesthesia Complication No 04/13/25 10:43 CRYPTOLOGIC SUPPORT SPECIALIST.JDEF Anesthesia Complication Comment: Post-operative progress note Anesthesia: Postop Eval II Evaluation Mental status: Awake Pain Level: 0 nausea: No Vomiting: No Complications Anesthesia Complication: No
--- NOTE | 2025-04-13 12:54 | PCM.POSTANE2 ---
Anesthesia Postop Eval I Sum Postop Eval Completion status Anesthesia document: Postop Eval 1 completed: Yes Anesthesia Postop Eval I Summary Anesthesia Postop Eval I Summary: Anesthesia Postop Eval I: Assessment Summary Airway patent Yes 04/13/25 10:43 TRACK REPAIRER [email or web address] Spontaneous unlabored Yes 04/13/25 10:43 TRACK REPAIRER HELPER.[email or web address] respirations Mental status Awake 04/13/25 10:43 TRACK REPAIRER HELPER.JDEF nausea No 04/13/25 10:43 TRACK REPAIRER HELPER.JDEF Vomiting No 04/13/25 10:43 TRACK REPAIRER HELPER.JDEF Anesthesia Postop Eval I: Fluid Summary Crystalloid volume administer 500 04/13/25 10:43 TRACK REPAIRER HELPER.JDEF (ml) Colloids volume administered ( ml) Blood Product volume administered (ml) Total IV fluid infused 500 04/13/25 10:43 TRACK REPAIRER HELPER.JDEF Anesthesia Postop Eval I: Summary Notes Anesthesia Complication No 04/13/25 10:43 TRACK REPAIRER HELPER.JDEF Anesthesia Complication Comment: Post-operative progress note Anesthesia: Postop Eval II Evaluation Mental status: Awake Pain Level: 0 nausea: No Vomiting: No Complications Anesthesia Complication: No
== END 2025-04-13 11:25 | disposition home or self-care (01) ==
LOC: EN 07:56 → AC 07:56
PROVIDERS: PCP Internal Medicine; Referring Provider Internal Medicine; Visit Provider Surgery
PROC: 0DJD8ZZ Inspection of Lower Intestinal Tract, Via Natural or Artificial Opening Endoscopic (ICD-10-PCS; CPT 45378; principal; 2025-04-13 09:10)
DX: K57.32 Diverticulitis of large intestine without perforation or abscess without bleeding (principal); E11.9 Type 2 diabetes mellitus without complications; I10 Essential (primary) hypertension; E07.9 Disorder of thyroid, unspecified; F17.200 Nicotine dependence, unspecified, uncomplicated; Z79.899 Other long term (current) drug therapy
CPT/HCPCS: 45378; J2405